=== PATIENT | female | born 1940 | race Caucasian/White ===

== ENCOUNTER 2016-06-13 20:43 | Inpatient (IN) | payer MEDICARE ==
[~2016-06-13] VITALS: Ht 170.2 cm; Wt 47.5 kg
[2016-06-13 20:53] VITALS: BP 142/69; PULSE 80; RESP 35; O2SAT 85
--- NOTE | 2016-06-13 20:53 | ED.REPORT ---
HPI-Dyspnea / Wheezing Date of Service Jun 13, 2016 ED Provider: Donte Shaikh DO A 75 year old female with a history of COPD presents to the ED via EMS from [facility] complaining of SOB. Per EMS, ,the patient was found tripoding, speaking in 3 word sentences and in significant respiratory distress.she was given nebulizer treatment at the nursing facility and then again by EMS and Route. She recently has had previous episodes of similar symptoms and recently had a chest XRay done to rule out pneumonia. She denies any history of heart conditions and denies any other pertinent medical history. She has never been intubated before. She confirms a DO NOT RESUSCITATE/DO NOT INTUBATE status. History is difficult to obtain given patient's respiratory distress and shortness of breath. Nursing Notes Stated Complaint: COPD EXACERBATION Chief Complaint: Respiratory Distress Nursing Notes Reviewed: Yes Allergies: Coded Allergies: Penicillins (Verified Allergy, Intermediate, 06/13/16) Scheduled Albuterol HFA (Proair HFA) 8.5 Gm Hfa.aer.ad 2 PUFFS INHALATION Q4H Albuterol Neb Soln (Albuterol Neb Soln) 0.63 Mg/3 Ml Vial.neb 0.63 MG INHALATION QID Aspirin (Aspirin) 81 Mg Tablet 81 MG PO DAILY Beclomethasone Dipropionate (Qvar) 8.7 Gm Aer.w.adap 1 PUFF INHALATION BID Calcium Carbonate (Tums) 500 Mg Tab.chew 500 MG PO DAILYWD Diltiazem (Diltiazem) 30 Mg Tablet 30 MG PO TID Docusate Sodium (Colace) 100 Mg Capsule 100 MG PO DAILY Ergocalciferol (Vitamin D2) (Vitamin D2) 2,000 Unit Tablet 2,000 UNIT PO DAILY Ferrous Sulfate (Iron) 325 Mg Capsule.er 325 MG PO DAILY Fexofenadine (Fexofenadine) 180 Mg Tablet 180 MG PO DAILY DAILY NEEDED FOR ALLERGIES Fluticasone Propionate (Fluticasone Propionate) 50 Mcg/Actuation [place].susp 15.8 ML NS DAILY Metformin (Metformin) 500 Mg Tablet 500 MG PO DAILY Multivitamin (Once Daily) 1 Each Tablet 1 EACH PO DAILY Propranolol HCl (Propranolol HCl) 80 Mg Tablet 80 MG PO BID Ranitidine (Ranitidine) 150 Mg Capsule 150 MG PO BID Sertraline HCl (Sertraline) 25 Mg Tablet 25 MG PO DAILY Tiotropium [place] (Spiriva) 18 Mcg Cap.w.dev 18 MCG IH DAILY Scheduled PRN Acetaminophen (Acetaminophen) 325 Mg Tablet 650 MG PO Q4H PRN PRN For Pain Albuterol Neb Soln (Albuterol Neb Soln) 0.63 Mg/3 Ml Vial.neb 0.63 MG INHALATION Q4H PRN PRN For Shortness of Breath Zolpidem (Ambien) 5 Mg Tablet 5 MG PO HS PRN PRN For Insomnia General Time Seen by MD: 20:48 Transferred From: [facility] ([facility]) Chief Complaint Shortness of breath Hx Obtained From: Patient, EMS Arrived By: Ambulance Sudden in Onset?: Yes Onset Occurred: Onset unknown Symptom Duration: Duration unknown Recent Healthcare: Recent doctor visit (Had chest XRay done recently. ) Similar Sx Previous: No Past Medical History Past Medical History Patient is DNR. Reports: COPD Past Surgical History none reported. Ambulatory Status Independent Review of Systems Constitutional: Denies: Fever Respiratory: Reports: Shortness of breath Complete sys rev & neg: except as marked. Physical Exam Initial Vital Signs Vital Signs (First) Date Time Temp Pulse Resp B/P Pulse Ox O2 Delivery O2 Flow Rate FiO2 06/13/16 20:53 37.2 80 35 142/69 85 Simple Mask 7 Initial VS: Reviewed General/Constitutional: Awake, Alert, Well appearing Patient is speaking in 3 word sentences. History is limited due to patient condition. + head bobbing. Neck: Atraumatic, Full range of motion Resp Distress / Stridor: Positive: Resp distress moderate (moderate to severe respitory distress.) Lungs are tight. Poor air movement. Does have some mild expitory wheezing and prolonged expiration. Cardiovascular: Heart rate NL, Regular rhythm, Heart sounds NL, No gallop, No murmurs, No rubs ENT: Atraumatic, Mucous membranes moist Abdomen: Atraumatic, No guarding, No rebound Back: Atraumatic, Full range of motion Lower Extremity / Pelvis / MS: Atraumatic, Full range of motion Skin: Atraumatic, Warm, Dry Neurologic: Oriented X3, Speech NL Head / Eyes: Atraumatic, Normocephalic, PERRL, EOMI Upper Extremity / MS: Atraumatic, Full range of motion Wrist / Hand: Atraumatic, Full range of motion Ankle / Foot: Atraumatic, Full range of motion Interpretation & Diagnostics Lab Results Interpretation Result Diagram: 06/15/16 0204 06/15/16 0204 Test 06/13/16 20:58 06/13/16 21:43 Pro-B-Type Natriuretic Peptide 931.8pg/mL (0-738) Procalcitonin 0.04ng/mL (0.00-0.08) Lactic Acid Level 0.8mmol/L (0.4-2.0) ECG Interpretation ECG Interpretation: Sinus rhythm. Rate is 80. No ST abnormalities. Time: 20:54 Interpreted by: ED physician X-Ray Chest Interpretation Chest Xray Interpretation: IMPRESSION: Chronic diffuse/interstitial disease. No acute consolidation Dictated by: Zak Emery M.D. on 06/13/2016 at 21:59 Approved by: Zak Emery M.D. on 06/13/2016 at 22:00 View: Portable, 1 view Interpretation / Wet Read by: Interpret - Radiologist Re-Eval/Medical Decision Med Decision/Clinical Course 75-year-old female with a history of COPD presenting with respiratory failure and required BiPAP for half an hour or so. At that point patient then began refusing BiPAP. She received nebulizer treatment here which improved her breathing. On recheck she was moving more air but remained very wheezy. ABG returned showing pH of 7.4/46/77/29.3. Patient's pulse ox is at 86% with good waveform on full facemask at 7 L. She is refusing to wear the BiPAP which does bring her pulse ox up significantly into the 90s. 2000 New oxygen monitor placed and her pulse ox is now at 100. When oxygen removed patient drops into the 80s. Patient was treated with magnesium, Solu-Medrol. Antibiotics were not started as her calcitonin is negative. Patient admitted for further workup and treatment. Source of Hx: Old records, EMS Re-Evaluation/Progress : Time of Eval: 22:58 Re-Evaluation/Progress Note: Rechecked patient, explained test results, diagnosis, and plan for admission. Patient understands and agrees with plan. Consultation : Referral / Consult Name: Charleen Joshi MD Consulted With: Hospitalist Call Returned at: 22:56 Anesthesiologist Attending: Agrees with eval, Agrees with plan, Accepts admit Note: Discussed patient case with Dr. Joshi who accepts patient admit. Counseled Regarding: Diagnosis, Lab results, Need for admission Discharge & Departure Impression: Primary Impression: Respiratory failure Chronicity: acute Respiratory failure complication: hypoxia and hypercapnia Qualified Code: J96.01 - Acute respiratory failure with hypoxia Additional Impressions: COPD exacerbation Anemia Anemia type: unspecified type Qualified Code: D64.9 - Anemia, unspecified Hyperglycemia Disposition: ADMITTED TO HOSPITAL Discharge Condition All VS Reviewed: Yes Condition: Stable Crit Care Except Billable Proc Time Spent: 30-74 minutes Services Performed: Patient management by me, Time spent at bedside, Reviewing test results, Reviewing imaging, Discussing patient care, Documentation in record, Time with fam/surrogate Scribe Attestation Portions of this note were transcribed by Simeon Dallas. I, Dr. Shaikh personally performed the history, physical exam and medical decision-making; I reviewed and confirmed the accuracy of the information in the transcribed note. Signed by: Iron Reis, 06/14/2016 0033. Donte Shaikh DO Jun 13, 2016 20:53 Simeon Dallas Jun 13, 2016 21:02 Albumin 3.7g/dL (3.4-5.0) Procalcitonin 0.04ng/mL (0.00-0.08) Lactic Acid Level 0.8mmol/L (0.4-2.0) ECG Interpretation ECG Interpretation: Sinus rhythm. Rate is 80. No ST abnormalities. Time: 20:54 Interpreted by: ED physician X-Ray Chest Interpretation Chest Xray Interpretation: IMPRESSION: Chronic diffuse/interstitial disease. No acute consolidation Dictated by: Zak Emery M.D. on 06/13/2016 at 21:59 Approved by: Zak Emery M.D. on 06/13/2016 at 22:00 View: Portable, 1 view Interpretation / Wet Read by: Interpret - Radiologist Re-Eval/Medical Decision Med Decision/Clinical Course ABG returned showing pH of 7.4/46/77/29.3. Patient's pulse ox is at 86% with good waveform. She is refusing to wear the BiPAP which does bring her pulse ox up significantly into the 90s. 2000 New oxygen monitor placed and her pulse ox is now at 100. Source of Hx: Old records, EMS Re-Evaluation/Progress : Time of Eval: 22:58 Re-Evaluation/Progress Note: Rechecked patient, explained test results, diagnosis, and plan for admission. Patient understands and agrees with plan. Consultation : Referral / Consult Name: Charleen Joshi MD Consulted With: Hospitalist Call Returned at: 22:56 Anesthesiologist Attending: Agrees with eval, Agrees with plan, Accepts admit Note: Discussed patient case with Dr. Joshi who accepts patient admit. Counseled Regarding: Diagnosis, Lab results, Need for admission Discharge & Departure Impression: Primary Impression: COPD exacerbation Disposition: ADMITTED TO HOSPITAL Discharge Condition All VS Reviewed: Yes Condition: Stable Scribe Attestation Portions of this note were transcribed by Simeon Dallas. I, Dr. Shaikh personally performed the history, physical exam and medical decision-making; I reviewed and confirmed the accuracy of the information in the transcribed note. Signed by: Iron Reis, 06/14/2016 0033. Donte Shaikh DO Jun 13, 2016 20:53 Simeon Dallas Jun 13, 2016 21:02
[2016-06-13] MEDS ORDERED: Magnesium Sulf 2 Gm/50mL Water 2 GM in IV Premix 1 EACH IV ONE (20:55)
[2016-06-13] MEDS ORDERED: MethylprednisoLONE Sodium Succinate 62.5 mg/mL 2 mL Inj IVPUSH ONE (20:55)
[2016-06-13] MEDS ORDERED: Albuterol-Ipratropium 3 mL Inhalation Solution NEB ONE (20:55)
--- NOTE | 2016-06-13 21:18 | ABG ---
DateTimeAnalyzed 21:13:00 -_ pH ____7.423 - 7.350 7.450 pCO2 ___45.8__ -mmHg 35.0 45.0 pO2 ___76.9__ -mmHg 69.0 116 HCO3- ___29.3__ -mmol/L 22.0 26.0 ABE ____4.8__ -mmol/L -2.0 2.0 tHb ____9.5__ -g/dL O2Hb ___93.6__ -% COHb ____1.3__ -% MetHb ____1.1__ -% sO2 ___95.9__ -% FIO2 ___30.0__ -% Drawn By MK - Date/Time Notified____ 21:18:00 -_ Oxygen Device 1 __oxymask - Notified By MK - B 759 -mmHg tO2 ___12.6__ -Vol% Jorge test _Positive -
[2016-06-13 21:22] LABS: BASOPHILS % (AUTO) 0.3 % (0-3); EOSINOPHILS % (AUTO) 2.2 % (0-5); MONOCYTES % (AUTO) 8.2 % (4-12); Mean Corpuscular Hemoglobin 28.3 pg (27.0-35.0); Mean Corpuscular Volume 89.8 fL (81-100); NEUTROPHILS % (AUTO) 73.2 % (40-74); Platelet Count 255 bil/L (150-400)
[2016-06-13 21:25] VITALS: BP 107/84; PULSE 83; RESP 24; O2SAT 100
[2016-06-13 21:52] LABS: TROPONIN T 0.01 ug/L (0.0-0.011)
--- NOTE | 2016-06-13 22:02 | DRSVH ---
PROCEDURE: X-RAY CHEST ONE VIEW, PORTABLE ([id number]) INDICATIONS: SOB TECHNIQUE: One view of the chest was acquired. COMPARISON: None. FINDINGS: Surgical changes and devices: None. Lungs and pleura: No pleural effusions or pneumothorax. Lungs are clear. There is severe diffuse in terstitial change and scarring. Lungs are hyperinflated Mediastinum: Mediastinal contours appear normal. Heart size is normal. Bones and chest wall: No suspicious bony lesions. Overlying soft tissues appear unremarkable. Frame Operator carmen appearing right rib fractures IMPRESSION: Chronic diffuse/interstitial disease. No acute consolidation Dictated by: Zak Emery M.D. on 06/13/2016 at 21:59 Approved by: Zak Emery M.D. on 06/13/2016 at 22:00
[2016-06-13 22:42] VITALS: BP 127/75; PULSE 78; RESP 28; O2SAT 95
[2016-06-13 23:27] VITALS: BP 131/72; PULSE 80; RESP 27; O2SAT 96
[2016-06-13 23:32] VITALS: BP 131/72; PULSE 80; RESP 27; O2SAT 96
[2016-06-13] MEDS ORDERED: Ondansetron 2 mg/mL 2 mL Inj IVPUSH PRN (23:50)
[2016-06-13] MEDS ORDERED: Alum-Mag Hydrox-Simeth 30 mL Suspension PO PRN (23:50)
[2016-06-14] VITALS (20 sets, daily range): BP systolic 101–171; BP diastolic 57–109; PULSE 67–82; RESP 12–32; O2SAT 88–98
[2016-06-14] MEDS ORDERED: Alum-Mag Hydrox-Simeth 30 mL Suspension PO PRN (00:15)
[2016-06-14] MEDS ORDERED: Polyethylene Glycol (PEG) 17 Gm Powder PO PRN (00:15)
[2016-06-14] MEDS ORDERED: Albuterol 1.25 mg/3 mL Inhalation Solution NEB PRN (00:15)
[2016-06-14] MEDS ORDERED: Glucose 40% Oral Gel 15 Gm Tube PO PRN (00:15)
--- NOTE | 2016-06-14 00:42 | PCM.HPMED ---
Subjective Date of Service Jun 13, 2016 Primary Provider: Admitting Physician: Charleen Joshi MD Primary Care Physician: Todd Garcia DO Attending Physician: Charleen Joshi MD Chief Complaint: Shortness of breath History of Present Illness: Patient is a 75 year old female with a history of COPD who presents to the ED via EMS from [facility] complaining of shortness of breath. Per EMS, the patient was found in tripod position. Oxygen stat en route was 88-90%. She recently has had previous episodes of similar symptoms. She reports a productive cough with yellow sputum and wheezing, as well as decreased appetite for 2-3 days. She denies chest pain, abdominal pain, N/V/D, fevers, chills, or weakness. She was seen in clinic for pneumonia and COPD in April and was treated with a course of prednisone. In the ED, she initially presented with a temp of 37.2, HR 80, RR 36, satting 85 % on 7L mask. EKG showed sinus rhythm. CXR showed chronic diffuse/interstitial disease with no acute consolidation. An ABG showed pH 7.423, pCO2 45.8, pO2 77, and bicarb of 29.3. She was placed on BiPAP for a period of time and her oxygen saturation improved to the 90s. She was eventually unable to tolerate the BiPAP and was able to maintain saturation on oxymask after nebulizers and Solu Medrol. Patient's history is limited and she cannot recall much of her medical history. Review of Systems: Comprehensive review of systems conducted and was negative except for the pertinent positives listed above. Allergies Coded Allergies: Penicillins (Verified Allergy, Intermediate, 06/13/16) Home Medic[facility] Acidophilus Albuterol nebulizer Aspirin 81 mg daily Calcium Diltiazem 30 mg TID Fexofenadine 180 mg daily Fluticasone intranasal Nicotine patch 14 mg daily Albuterol inhaler Propranolol 80 mg BID Qvar inhaler Ranitidine 150 mg BID Sertraline 25 mg daily Spiriva inhaler Vitamin D Zolpidem 20 mg qhs PMH COPD Depression GERD Surgical History Left elbow surgery Hysterectomy Family History Patient states she is adopted Social History Hx Alcohol Use: No Hx Substance Use: No Hx Tobacco Use: Yes Smoking Status: Former Smoker (60 pack year history, quit in March) Exam Vital Signs Vital Sign - Last Date Time Temp Pulse Resp B/P Pulse Ox O2 Delivery O2 Flow Rate FiO2 06/13/16 23:32 80 27 131/72 96 Simple Mask 2 Nasal Cannula 06/13/16 20:53 37.2 Exam General: Alert, Oriented, Cooperative, No acute distress. Appears cachectic. Head: Normocephalic, atraumatic. External ears normal. Eyes: PERRLA, EOMI. Anicteric sclerae. Mouth: Mouth normal, Mucous membranes moist/pink Neck: Neck supple with full range of motion. Chest& Lungs: Bilateral expiratory wheezes Cardiovascular: Regular rate/rhythm, Normal S1, Normal S2, No murmurs/rubs/ gallops Abdomen: Non-tender, Non-distended, No masses, Normoactive bowel tones, Soft Musculoskeletal: Normal range of motion Extremities: No cyanosis/clubbing/edema bilaterally Neurological: Grossly neurologically intact. Normal speech Lab and Diagnostics Result Diagram: 06/13/16205706/13/162057 Assessment & Plan Patient is a 75 year old female with a history of COPD who presents to the ED via EMS from [facility] complaining of shortness of breath, productive cough, and wheezing. Admitted for COPD exacerbation 1. Acute on chronic COPD exacerbation. Present on admission - Pt presents with coughing, wheezing, shortness of breath. Improved on nebulizers. Received Solu-Medrol 125 mg in ED. No signs of infection - WBC, procalcitonin, and lactic acid are normal. - Duonebs q6hwa - Albuterol nebs q2h PRN - Prednisone 60 mg PO daily - Hold home inhalers 2. Acute anemia. Present on admission. - Hb 10 on admission. MCV 89.8. Pt denies blood in stool or urine. - Monitor CBC daily - Continue to monitor for signs of bleeding 3. Hyperglycemia, acute. Present on admission. - Glucose 175 on admission. No prior records of past medical history, but pt denies diabetes. - A1c ordered - Humalog low dose correctional scale 4. Hypertension, chronic - Continue home propranolol and aspirin 5. Depression - Continue home sertraline and zolpidem 6. GERD - Continue home ranitidine 7. History of smoking - Continue nicotine patch - Bowel regimen as needed - Antiemetic as needed Patient is admitted under inpatient status with expected length of stay greater than 2 midnights due to severity of presenting symptoms, risk of adverse event, and complexity of treatment plan. - Note: Patient's history is limited and medications obtained from [facility] records. Recommend requesting further records in the daytime. Med Rec not complete at this time. VTE Prophylaxis: Sub-Q Heparin (Unfractionated) Resuscitation Status: DNR/DNI:Do Not Resuscitate/Intubate Attending Statement Patient seen and examined by myself and agree with above plan. Jarred Bah Jun 13, 2016 23:51 Charleen Joshi MD Jun 14, 2016 06:18
[2016-06-14] MEDS: Heparin 5,000 Unit/mL Inj SUBQ SCH ×3 (00:52→17:56)
[2016-06-14] MEDS: 0.9% Sodium Chloride 1,000 ML IV SCH ×2 (00:52→14:53)
[2016-06-14] MEDS ORDERED: TIOT18CA3 IH (01:45)
[2016-06-14] MEDS ORDERED: FLUT15.88 NASAL (01:45)
[2016-06-14] MEDS ORDERED: RANI150C4 PO (01:45)
[2016-06-14] MEDS ORDERED: ALBU8.5H2 INHALATION (01:45)
[2016-06-14] MEDS ORDERED: DOCU-41 PO (01:45)
[2016-06-14] MEDS ORDERED: BECL8.7A6 INHALATION (01:45)
[2016-06-14] MEDS ORDERED: CALC500T9 PO (01:45)
[2016-06-14] MEDS ORDERED: ASPI-973 PO (01:45)
[2016-06-14] MEDS ORDERED: FEXO-106 PO (01:45)
[2016-06-14] MEDS ORDERED: FERR325C PO (01:45)
[2016-06-14] MEDS ORDERED: MULT-666 PO (01:45)
[2016-06-14] MEDS ORDERED: ACET325T51 PO (01:45)
[2016-06-14] MEDS ORDERED: DILT30TA PO (01:45)
[2016-06-14] MEDS ORDERED: ERGO2000 PO (01:45)
[2016-06-14] MEDS ORDERED: METF500T4 PO (01:45)
[2016-06-14] MEDS ORDERED: ALBU0.63 INHALATION ×2 (01:45)
[2016-06-14] MEDS ORDERED: SERT25TA6 PO (01:45)
[2016-06-14] MEDS ORDERED: PROP80TA4 PO (01:45)
[2016-06-14] MEDS ORDERED: ZLP5T PO (01:45)
[2016-06-14 01:48] LABS: APPEARANCE,URINE CLEAR (CLEAR,HAZY); COLOR,URINE YELLOW (YELLOW); OCCULT BLOOD,URINE NEGATIVE (NEGATIVE); PH,URINE 5.5 (5.0-8.0); UROBILINOGEN,URINE NORMAL (NORMAL)
--- NOTE | 2016-06-14 06:17 | NUR ---
Admit Admitted from ED via stretcher. Able to ambulate on arrival. Significant ROACH with decreased SpO2 into the mid 80's on 2L Oxymask noted after ambulating. After several minutes of rest and increased O2 via oxymask SpO2 returned to >90%. Non productive cough noted on assessment. Tele SR w/o c/o CP. Denies n/v but reports poor PO intake at baseline. Toileting per BSC without any noted GI/ issues. Generalized weakness reported especially with activity. NS @ 80ml/hr initiated per orders. Personal belongings at bedside per patient request. Oriented to call light use with return demonstration.
[2016-06-14 07:41] LABS: BASOPHILS % (AUTO) 0 % (0-3); EOSINOPHILS % (AUTO) 0.2 % (0-5); Mean Corpuscular Hemoglobin 28.7 pg (27.0-35.0); Mean Corpuscular Volume 89.8 fL (81-100); NEUTROPHILS % (AUTO) 88.1 % (40-74); Platelet Count 171 bil/L (150-400)
[2016-06-14] MEDS: Albuterol-Ipratropium 3 mL Inhalation Solution NEB SCH ×4 (08:05→21:21)
[2016-06-14] MEDS ORDERED: Ergocalciferol (Vit D2) 50,000 Unit Capsule PO SCH (08:30)
--- NOTE | 2016-06-14 09:21 | NUR ---
Evaluation completed. Please go to "Notes" then click on "Assessments and Notes" (bottom left corner of screen). Then select appropriate discipline tab on top of screen.
--- NOTE | 2016-06-14 09:30 | PCM.PNMED ---
Subjective Date of Service Jun 14, 2016 Subjective - Pt seen and examined this morning. AAO x 3. No acute events over night. States that she is doing better than yesterday. - c/o SOB which is improving. - Denies any chest pain. Exam Vital Signs Vital Sign - Last Date Time Temp Pulse Resp B/P Pulse Ox O2 Delivery O2 Flow Rate FiO2 06/14/16 09:20 80 06/14/16 08:10 18 93 Nasal Cannula 2.00 06/14/16 05:51 36.4 169/79 Intake and Output 06/13/16 06/13/16 06/14/16 Cumulative From/Thru 15:00 23:00 07:00 06/13/16 20:53 - 06/14/16 06:37 Intake Total 300 ml 300 ml Output Total 925 ml 925 ml Balance -625 ml -625 ml Intake Oral 300 ml 300 ml Output Urine Total 925 ml 925 ml Exam General: Alert, Oriented, Cooperative, No acute distress. Appears cachectic. Head: Normocephalic, atraumatic. External ears normal. Eyes: PERRLA, EOMI. Anicteric sclerae. Mouth: Mouth normal, Mucous membranes moist/pink Neck: Neck supple with full range of motion. Chest& Lungs: Bilateral expiratory wheezes, decrease breath sounds at bilateral bases. Cardiovascular: Regular rate/rhythm, Normal S1, Normal S2, No murmurs/rubs/ gallops Abdomen: Non-tender, Non-distended, No masses, Normoactive bowel tones, Soft Musculoskeletal: Normal range of motion Extremities: No cyanosis/clubbing/edema bilaterally Neurological: Grossly neurologically intact. Normal speech Lab and Diagnostics Result Diagram: 06/14/1671806/14/16718 Assessment & Plan 75 year old female with a history of COPD who presents to the ED via EMS from [facility] complaining of shortness of breath, productive cough, and wheezing. Admitted for COPD exacerbation 1. Acute on chronic COPD exacerbation. Present on admission - Pt presents with coughing, wheezing, shortness of breath. Improved on nebulizers. Received Solu-Medrol 125 mg in ED. No signs of infection - WBC, procalcitonin, and lactic acid are normal. - Duonebs q 6hours - Albuterol nebs q2h PRN - Prednisone 60 mg PO daily - on Azithromycin day # 1 - Hold home inhalers 2. Acute anemia. Present on admission. - Hb 10 on admission trended down to 9 - Pt denies blood in stool or urine. - Monitor CBC daily - Continue to monitor for signs of bleeding 3. Hyperglycemia, acute. Present on admission. - Glucose 175 on admission. No prior records of past medical history, but pt denies diabetes. - A1c pending - Humalog low dose correctional scale 4. Hypertension, chronic - Continue home propranolol and aspirin 5. Depression - Continue home sertraline and zolpidem 6. GERD - Continue home ranitidine 7. History of smoking - Continue nicotine patch - Bowel regimen as needed - Antiemetic as needed VTE Prophylaxis: Sub-Q Heparin (Unfractionated) Resuscitation Status: DNR/DNI:Do Not Resuscitate/Intubate Chavez Byrd MD Jun 14, 2016 09:30
[2016-06-14] MEDS: predniSONE 20 mg Tablet PO SCH (10:37)
[2016-06-14] MEDS: Pantoprazole 20 mg ER24 Tablet PO SCH ×2 (10:37→22:38)
[2016-06-14] MEDS: Insulin LISPRO 300 Unit/3 mL Inj SUBQ SCH ×4 (10:38→22:40)
--- NOTE | 2016-06-14 11:55 | NUR ---
Social Work-initial assessment: Data:See initial assessment. Pt is a 75 y/o female who was admitted on 06/13/16 for COPD exacerbation per H&P. Pt's insurance is [facility] and PCP is Todd Garcia MD. EMR reviewed. SW met with pt at bedside to discuss discharge planning, SW role explained. Pt is alert and oriented x3. Pt informed SW that she has been residing at [facility] and plans to return there at discharge. Pt uses a fww at baseline and does not drive. Pt has no HH history. Pt has no skilled nursing care insurance or VA benefits. SW discussed DPOA/ advanced directive, pt confirms that she has completed this, SW encouraged a copy to be brought into the hospital. Pt plans on returning to [facility] at discharge. SW provided phone number and plan on white board in room. SW placed a call to Joanna Wick at [facility] who confirms they are able to accept pt back at discharge. Joanna informed SW that pt has been paying privately for SNF since 05/06. PT saw pt and recommended SNF. SW will attempt to get authorization from , if denies then pt will pt will return private pay. Paperwork in the chart. SW will continue to follow. Assessment:Pt who would benefit from SNF. Plan:Pt to discharge back to [facility] when medically stable. authorized will be attempted, if they do not authorize, pt will return private pay. Paperwork in the chart. SW will continue to follow. KERON White Addendum: 06/14/16 at 1202 by ARIELLA SUÁREZ Amended: Links added.
--- NOTE | 2016-06-14 12:02 | NUR ---
[facility] can accept back with Dr. Garcia to follow. KERON White
--- NOTE | 2016-06-14 18:14 | NUR ---
Chest Pain Patient complained of 5/10 chest pain. Ordered EKG stat and notified open hearth furnace operator helper. technical training specialist notified stat nurse. after EKG was done. notified MD asked for orders for nitro and morphine. By this time zuluaga increased to 6/10. Gave one dose of nitro. no change in pain. gave 2mg of morphine IVPush. Pain went down to 5/10. Gave second dose of nitro. no change in pain. Gave another 2mg of morphine. Pain went down to 3/10.
[2016-06-14] MEDS ORDERED: Nitroglycerin 50 mg/250 mL D5W 50,000 MCG in IV Premix 1 EACH IV SCH (19:10)
[2016-06-14] MEDS ORDERED: Nitroglycerin 2% 1 Gm Ointment TOPICAL ONE (19:12)
[2016-06-14] MEDS ORDERED: Nitroglycerin 50,000 mcg/250 mL D5W Premix IV ONE (19:13)
--- NOTE | 2016-06-14 19:53 | PCM.PNMED ---
Subjective Date of Service Jun 14, 2016 Subjective Called to see patient regarding chest pain radiating to her left shoulder which started about 4 PM and it is currently 7 PM. Nurse tells me patient was evaluated by Day .Pt received some IV morphine which helped a little bit including given some sublingual nitroglycerin which seemed to help. EKG shows no acute changes and reportedly troponin was done but there is none listed in the labs. Patient has been fairly constant since about 4 PM. She denies any increase in shortness of breath with this. She is here for COPD exacerbation. She denies any nausea or diaphoresis. Exam Vital Signs Vital Sign - Last Date Time Temp Pulse Resp B/P Pulse Ox O2 Delivery O2 Flow Rate FiO2 06/14/16 18:41 37.0 69 21 134/80 92 Nasal Cannula 2.00 Intake and Output 06/13/16 06/13/16 06/14/16 Cumulative From/Thru 15:00 23:00 07:00 06/13/16 20:53 - 06/14/16 06:37 Intake Total 300 ml 300 ml Output Total 925 ml 925 ml Balance -625 ml -625 ml Intake Oral 300 ml 300 ml Output Urine Total 925 ml 925 ml Exam Constitutional: Elderly woman in mild pain distress Head: Normocephalic atraumatic Chest: Decreased breath sounds diffusely with some scant expiratory wheezes Cor: Regular rate and rhythm S1-S2 without murmur Abdomen: Soft there is mild tenderness in the epigastrium no rebound no guarding Extremities: No pedal edema Neuro: Alert and oriented 3, motor strength is intact bilaterally Lab and Diagnostics Laboratory Tests 72 Hours Test 06/13/16 20:58 06/13/16 21:43 06/14/16 01:14 06/14/16 07:19 White Blood Count 7.6th/mm3 (3.8-10.1) 4.9th/mm3 (3.8-10.1) Red Blood Count 3.53mil/mm3 (3.90-5.20) 3.14mil/mm3 (3.90-5.20) Hemoglobin 10.0g/dL (12.0-15.6) 9.0g/dL (12.0-15.6) Hematocrit 31.7% (35.0-46.0) 28.2% (35.0-46.0) Mean Corpuscular Volume 89.8fL (81-100) 89.8fL (81-100) Mean Corpuscular Hemoglobin 28.3pg (27.0-35.0) 28.7pg (27.0-35.0) Mean Corpuscular Hemoglobin Concent 31.5% (32.0-37.0) 31.9% (32.0-37.0) Red Cell Distribution Width 14.9% (12.3-15.4) 14.8% (12.3-15.4) Platelet Count 255bil/L (150-400) 171bil/L (150-400) Neutrophils (%) (Auto) 73.2% (40-74) 88.1% (40-74) Lymphocytes (%) (Auto) 15.7% (14-46) 10.3% (14-46) Monocytes (%) (Auto) 8.2% (4-12) 1.0% (4-12) Eosinophils (%) (Auto) 2.2% (0-5) 0.2% (0-5) Basophils (%) (Auto) 0.3% (0-3) 0% (0-3) Sodium Level 135mEq/L (134-144) 137mEq/L (134-144) Potassium Level 4.2mEq/L (3.5-5.2) 4.1mEq/L (3.5-5.2) Chloride Level 95mEq/L (97-108) 98mEq/L (97-108) Carbon Dioxide Level 27mmol/L (18-29) 26mmol/L (18-29) Blood Urea Nitrogen 16mg/dL (8-27) 14mg/dL (8-27) Creatinine 0.61mg/dL (0.57-1.00) 0.48mg/dL (0.57-1.00) Estimat Glomerular Filtration Rate 136mL/min (>59) 180mL/min (>59) Glucose Level 175mg/dL (60-99) 201mg/dL (60-99) Calcium Level 9.2mg/dL (8.5-10.1) 8.5mg/dL (8.5-10.1) Total Bilirubin 0.3mg/dL (0.0-1.2) 0.2mg/dL (0.0-1.2) Aspartate Amino Transf (AST/SGOT) 17U/L (0-50) 15U/L (0-50) Alanine Aminotransferase (ALT/SGPT) 10U/L (0-32) 9U/L (0-32) Alkaline Phosphatase 96U/L (25-165) 83U/L (25-165) Troponin T 0.010ug/L (0.0-0.011) Pro-B-Type Natriuretic Peptide 931.8pg/mL (0-738) Total Protein 8.1g/dL (6.4-8.4) 7.0g/dL (6.4-8.4) Albumin 3.7g/dL (3.4-5.0) 3.3g/dL (3.4-5.0) Procalcitonin 0.04ng/mL (0.00-0.08) Lactic Acid Level 0.8mmol/L (0.4-2.0) Urine Color Yellow (YELLOW) Urine Appearance Clear (CLEAR,HAZY) Urine pH 5.5 (5.0-8.0) Urine Specific [place] 1.020 (1.003-1.035) Urine Protein Negativemg/dL (NEG,TRACE) Urine Glucose (UA) Negativemg/dL (NEGATIVE) Urine Ketones Negativemg/dL (NEGATIVE) Urine Occult Blood Negative (NEGATIVE) Urine Nitrite Negative (NEGATIVE) Urine Bilirubin Negative (NEGATIVE) Urine Urobilinogen Normalmg/dL (NORMAL) Urine Leukocyte Esterase Negative (NEGATIVE) Urine RBC 0-2/hpf (0-2) Urine WBC 0-5/hpf (0-5) Urine Epithelial Cells Few/hpf (NONE-MOD) Urine Crystals Oxalic acid crystals (NONE Urine Bacteria None/hpf (NONE-FEW) Urine Hyaline Casts None/lpf (NONE) Urine Granular Casts None seen (NONE SEEN) Urine Waxy Casts None seen (NONE SEEN) Urine Red Blood Cell Casts None seen (NONE SEEN) Urine White Blood Cell Casts None seen (NONE SEEN) Urine Mucus None seen (None Seen) Urine Trichomonas None seen (NONE SEEN) Urine Yeast None (NONE SEEN) Urine Culture Reflexed Not indicated Result Diagram: 06/14/1671806/14/16718 12-lead ECG EKG reveals sinus at a rate of 78 QTC is 417 otherwise no acute abnormalities noted relative to previous EKGs she does have poor R-wave progression across precordium noted that is old. Assessment & Plan 75 year old female with a history of COPD who presents to the ED via EMS from [facility] complaining of shortness of breath, productive cough, and wheezing. Admitted for COPD exacerbation 1. Acute on chronic COPD exacerbation. Present on admission - Pt presents with coughing, wheezing, shortness of breath. Improved on nebulizers. Received Solu-Medrol 125 mg in ED. No signs of infection - WBC, procalcitonin, and lactic acid are normal. - Duonebs q 6hours - Albuterol nebs q2h PRN - Prednisone 60 mg PO daily - on Azithromycin day # 1 - Hold home inhalers 2. Acute anemia. Present on admission. - Hb 10 on admission trended down to 9 - Pt denies blood in stool or urine. - Monitor CBC daily - Continue to monitor for signs of bleeding 3. Hyperglycemia, acute. Present on admission. - Glucose 175 on admission. No prior records of past medical history, but pt denies diabetes. - A1c pending - Humalog low dose correctional scale 4. Hypertension, chronic - Continue home propranolol and aspirin 5. Depression - Continue home sertraline and zolpidem 6. GERD - Continue home ranitidine 7. History of smoking - Continue nicotine patch - Bowel regimen as needed - Antiemetic as needed The plan for acute problem which is chest pain times several hours: We will go ahead and check a stat CT PE protocol chest Check serial cardiac enzymes She did respond to nitroglycerin so we will start her on IV nitroglycerin drip and transfer her to CCU We will also start IV heparin drip for now cardiac protocol Check echocardiogram in a.m. Check serial EKGs Interim update at 5:14 AM on 06/15/2016: -On CT PE protocol of chest A possible 7 x 8 cm squared hemorrhagic mass seen in left upper quadrant unclear whether it was part of the stomach inside or adjacent to the stomach and spleen. -Patient did drop her hemoglobin to 6.5. Patient was typed and crossed and is to get 2 units of PRBCs transfused along with 2 units of FFP. Patient was also given IV protamine per pharmacy and IV heparin drip was stopped. We will check serial hematocrits. - Case was discussed with both gastroenterology and general surgery on-call and both will evaluate. It was also recommended getting a repeat CT of abdomen with IV contrast to further investigate early this morning. CT of abdomen without contrast was obtained earlier in the evening and still was unable to elucidate where this hemorrhagic mass is located. VTE Prophylaxis: Sub-Q Heparin (Unfractionated) Resuscitation Status: DNR/DNI:Do Not Resuscitate/Intubate Time spent 40 minutes of critical care time Charleen Joshi MD Jun 14, 2016 19:53
[2016-06-14] MEDS ORDERED: Heparin 5,000 Unit/mL Inj IVPUSH ONE (19:55)
[2016-06-14] MEDS ORDERED: Heparin 5,000 Unit/mL Inj IVPUSH PRN (19:55)
[2016-06-14] MEDS ORDERED: Heparin 25K Unit/500mL 0.45 NS 25,000 UNIT in IV Premix 1 EACH IV SCH (19:55)
[2016-06-14] MEDS: Nitroglycerin 50 mg/250 mL D5W 50,000 MCG in IV Premix 1 EACH IV SCH (21:02)
[2016-06-15] VITALS (20 sets, daily range): BP systolic 124–167; BP diastolic 67–93; PULSE 64–80; RESP 12–28; O2SAT 93–99
[2016-06-15] MEDS: 0.9% Sodium Chloride 1,000 ML IV SCH ×2 (01:16→12:44)
[2016-06-15] MEDS: Ondansetron 2 mg/mL 2 mL Inj IVPUSH PRN ×3 (01:47→19:42)
[2016-06-15 02:17] LABS: BASOPHILS % (AUTO) 0.1 % (0-3); EOSINOPHILS % (AUTO) 0.1 % (0-5); MONOCYTES % (AUTO) 6.1 % (4-12); Mean Corpuscular Hemoglobin 28.2 pg (27.0-35.0); Mean Corpuscular Volume 88.8 fL (81-100); NEUTROPHILS % (AUTO) 81.9 % (40-74); Platelet Count 182 bil/L (150-400)
[2016-06-15] MEDS ORDERED: Protamine Sulfate 10 mg/mL 5 mL Inj IV ONE (02:45)
[2016-06-15] MEDS ORDERED: PROTAMINE SULFATE IV ONE (02:55)
[2016-06-15] MEDS ORDERED: SODIUM CHLORIDE 0.9% IV ONE (02:55)
[2016-06-15 03:37] LABS: Lipase 129 U/L (13-60)
--- NOTE | 2016-06-15 05:00 | NUR ---
Shift I assumed care of the patient at 2044. Patient reported left should pain at 2/10. Patient was currently running NS at 80ml/hr and nitro at 75mcg/min. Blood pressure stable. Patients nitro drip was increased per protocol till patient was pain free. Patient was started on IV Heparin drip per cardiac protocol. No signs of bleeding present. Patient was taken to CT and found to have an abdominal bleed. IV heparin was stopped right away and night hospitalist informed. Patient anticoagulation was reversed with protamine sulfate. 1 unit of RBCs was started infusing for a low H/H, followed by 1 unit of FFP and another unit of RBC's. A slight increase in pulmonary congestion was noted. 40 mg of lasix was administered and the patients lungs started to become less crackly. Patient had over 1300ml out on my shift. Patient blood pressure remained stable. IV NS placed TKO. Night hospitalist aware of changes. Per night hospitalist instructions placement of an NG tube was attempted without success. Patient became very panicked and refused to let the tube be placed.
[2016-06-15] MEDS ORDERED: Furosemide 10 mg/mL 4 mL Inj IVPUSH ONE (05:10)
[2016-06-15] MEDS: Albuterol-Ipratropium 3 mL Inhalation Solution NEB SCH ×4 (07:47→20:34)
[2016-06-15] MEDS: Pantoprazole 8 mg/Hr Infusion IV SCH ×4 (08:17→16:55)
[2016-06-15] MEDS: Insulin LISPRO 300 Unit/3 mL Inj SUBQ SCH ×4 (08:24→22:34)
[2016-06-15] MEDS: predniSONE 20 mg Tablet PO SCH ×2 (08:27→15:53)
--- NOTE | 2016-06-15 08:38 | DRSVH ---
PROCEDURE: CT ANGIO CHEST PULMONARY EMBOLISM ([id number]) INDICATIONS: SHORT OF BREATH TECHNIQUE: After the administration of intravenous contrast, 2 mm thick sections acquired from the pulmonary api collin to the posterior costophrenic angles. 3-dimensional maximum intensity projection (MIP) coronal a nd sagittal reformats were then acquired through the thorax. For radiation dose reduction, the follo wing was used: automated exposure control, adjustment of mA and/or kV according to patient size. COMPARISON: [facility], CR, CHEST 2 VIEW, 06/21/2015, 11:35. [facility], CR, XR ADAM ST 1VW (PORTABLE), 06/13/2016, 21:06. [facility], CR, CHEST 1 VIEW, 04/09/2016, 14:51. [facility], CT, CT ABD PELVIS WO CON, 06/15/2016, 2:17. FINDINGS: Image quality: Excellent. Pulmonary arteries: Pulmonary arteries are normal in size, and demonstrate no intraluminal filling d efects to suggest central pulmonary embolism. Lungs and pleura: There is moderate emphysema. Right basilar opacity may be pneumonia or atelectasis . Bilateral subpleural interstitial thickening and mild bronchiectasis. Trace bilateral pleural effus ions. No pneumothorax. Central and peripheral airways are patent. Mediastinum: Heart size is normal, without pericardial effusion. Mild mediastinal lymphadenopathy is present. There is a 1.6 x 1.8 cm subcarinal lymph node. A 1.5 cm paratracheal lymph node is identifi ed. Thoracic aorta is normal in caliber and enhancement. Esophagus is normal in caliber. Small hiata l hernia. Bones and chest wall: There is moderate compression fracture at T8 and mild compression fracture at T 12. Old right third, fourth, fifth rib fractures are noted. Ribs and thoracic spine appear intact th roughout. Thyroid gland is normal. No axillary or supraclavicular adenopathy. Abdomen: There is a mass in the left upper quadrant and measuring 7.9 x 8.6 cm. IMPRESSION: 1. No evidence for acute central pulmonary embolism. 2. Right basilar pneumonia or atelectasis. 3. Moderate emphysema. 4. Chronic interstitial lung disease with subpleural septal thickening and mild bronchiectasis. 5. Trace bilateral pleural effusions. 6. Mild mediastinal lymphadenopathy. This finding is nonspecific and requires clinical correlation a nd follow up. 7. A mass in the left upper quadrant abdomen. Please see separate CT abdomen for detail. 8. Moderate nonacute compression fracture at T8 and mild compression fracture at T12. There are also old right rib fractures. No significant discrepancy with the caustic cresylate shift superintendent radiology preliminary report. Dictated by: Kendra Jackson M.D. on 06/15/2016 at 8:19 Approved by: Kendra Jackson M.D. on 06/15/2016 at 8:36
[2016-06-15 09:01] LABS: Lipase 168 U/L (13-60); TROPONIN T < 0.010 ug/L (0.0-0.011)
--- NOTE | 2016-06-15 11:34 | DRSVH ---
PROCEDURE: CT ABDOMEN AND PELVIS WITHOUT CONTRAST ([id number]) INDICATIONS: abd mass LUQ hemorrhagic TECHNIQUE: After the administration of oral contrast, 5 mm thick sections acquired from the diaphragms to the sy mphysis. 5 mm coronal and sagittal reformats were performed. For radiation dose reduction, the foll owing was used: automated exposure control, adjustment of mA and/or kV according to patient size. COMPARISON: [facility], CT, CT ANGIO CHEST PE, 06/15/2016, 0:25. [facility], CT, TH ORAX WITH CONTRAST, 10/31/2015, 8:56. FINDINGS: Image quality: Excellent. ABDOMEN: Lung bases: Small bilateral perfusions and bibasilar atelectasis. Mild bronchiectasis. Heart size is normal. Solid organs: There is a 7.5 x 8.0 x 6.5 cm complex mass in the left upper quadrant. There is a flui d-fluid level within the mass. A cystic mass was seen in the same area on 10/23/15 measuring 2.5 x 3.9 cm. There is pancreatic calcification consistent with chronic pancreatitis. Liver and spleen are normal in size. Gallbladder is normal. Both kidneys are normal in size, withou t hydronephrosis or nephrolithiasis. Peritoneum and bowel: Bowel loops demonstrate normal wall thickness and caliber. Excreted IV contra st is noted in renal pelvis bilaterally. No free fluid or air. Nodes and vessels: No retroperitoneal or mesenteric adenopathy by size criteria. Aorta and inferior vena cava are normal in size. There is severe atherosclerosis. Miscellaneous: No ventral hernias. PELVIS: Genitourinary: Bladder wall thickness is normal. Miscellaneous: No inguinal hernias or adenopathy. Bones: Moderate compression fracture in T12. Degenerative changes in lumbar spine. IMPRESSION: 1. A large complex mass in the left upper quadrant measuring 7.5 x 8.0 x 6.5 cm and demonstrating a f luid-fluid level. This has increased in size compared to 10/23/2015. Differential diagnoses include pa ncreatic pseudocyst, hematoma and a cystic neoplasm. 2. Pancreatic calcifications consistent with chronic pancreatitis. 3. Moderate compression fracture of T12. 4. Small bilateral perfusions and bibasilar atelectasis. Dictated by: Kendra Jackson M.D. on 06/15/2016 at 11:22 Transcribed by: AYESHA on 06/15/2016 at 11:33 Approved by: Kendra Jackson M.D. on 06/15/2016 at 19:58
--- NOTE | 2016-06-15 13:49 | NUR ---
NUTRITION ASSESSMENT Assess: 75 YO F admitted to CCU for COPD exacerbation, possible GI bleed. Pt with variable PO intake on general diet. NGT placement unsuccessful. Pt refusing surgery and scope per CCU rounds. PMHX: COPD, depression, GERD. DIET: General. PO intake 0-90%. LABS: Na 129, Cr 0.51, Glu 191, Ca 7.7, Lipase 168 MEDICATIONS: Reviewed. Prednisone, Insulin. GI: 1 BM 06/14. SKIN: No issues noted. WEIGHT: 43.2 kg, BMI 14.9 kg/m2 = underweight, Admit wt: 43.2 kg. IBW: 61.4 kg. ESTIMATED NEEDS: WEIGHT GAIN Calories: 7868-4183 kcal/day (30-35 kcal/kg BW) Protein: 74-92 g/day (1.2-1.5 g/kg IBW) NUTRITION DIAGNOSIS: 1) Inadequate oral intake related to decreased ability to consume sufficient energy as evidenced by underweight BMI 14.9, variable PO intake. INTERVENTION: 1) Will add nutrition supplements to encourage adequate nutrition. MONITOR/EVALUATE: PO intake, POC, labs, diet tolerance, GI/nutrition status. Follow per moderate nutrition risk guidelines.
--- NOTE | 2016-06-15 15:39 | DRSVH ---
[facility] [address] [place] [address] Echocardiogram Report Name: ALEXEY DE LEONy Date: Height: 67 in Hospital Exam Location: [facility] Weight: 95 lb Gender: Female BSA: 1.5 m2 : 1940 Age: 75 yrs BP: 148/93 mmHg Reason For Study: Chest pain History: HTN, GERD, SMOKER Ordering Physician: Performed By: Lidia Gonzales Referring Physician: Todd Garcia Interpretation Summary 1. Normal left ventricular size, wall thickness with preserved systolic function and an estimated EF of 55 to 60% 2. Grossly normal right ventricular size and systolic function. The estimated RVSP is 39 mm Hg 3. No evidence for significant valvular pathology If further evaluation of wall motion is desired consider definity contrast. There is no old study for comparison Procedure: A two-dimensional transthoracic echocardiogram with color flow and Doppler was performed. The study quality was technically adequate. There is no prior echocardiogram noted for this patient. The patient was in normal sinus rhythm during the exam. Left Ventricle: The left ventricle is normal in size. Proximal septal thickening is noted. There is normal left ventricular wall thickness. The ejection fraction is estimated to be 55-60%. Endocardial definition is not optimal in all views. The apical anterior/anteroseptal segments are not optimally visualized, therefore, cannot rule out hypokinesis of these segments. Right Ventricle: The right ventricle grossly appears normal in size with probable normal systolic function. Atria: The left atrium is mildly dilated. The right atrium is mildly dilated. NO color doppler evidence for an ASD. Mitral Valve: There is moderate mitral annular calcification. The mitral valve leaflets appear mildly thickened, but open well. There is trace mitral regurgitation. Aortic Valve: The aortic valve is trileaflet. The aortic valve opens well. There is no aortic valve stenosis. There is trace aortic regurgitation. Tricuspid Valve: The tricuspid valve leaflets are thin and pliable. There is trace tricuspid regurgitation. The right ventricular systolic pressure is estimated at 39 mmHg assuming a right atrial pressure of 3 mm Hg. Pulmonic Valve: The pulmonic valve is not well visualized. There is trace pulmonic regurgitation. Great Vessels: The aortic root is normal size. The ascending aorta could not be visualized. The aortic arch is normal in size. The IVC is of normal diameter and collapses greater than 50% with a sniff. This suggests a low right atrial pressure of 3 mm Hg. Pericardium/ Pleura There is no pericardial effusion. MMode/2D Measurements & Calculations LVIDd: 4.3 cm RA long axis LVOT diam: 2.0 cm LVIDs: 2.7 cm LA A2 area: 18.7 cm Ao root diam FS: 37.1 % LA A4 area: 18.8 cm RA area EPSS: 0.32 cm LA length (vol) Aortic Jxn: 2.5 cm IVSd: 1.1 cm : 17.0 cm Ao Arch Diam (Prox LVPWd: 0.65 cm LA vol: 62.7 ml RA vol Trans): 2.6 cm LA vol index : 51.3 ml RA : 34.8 mm2 IVC diam: 1.9 cm LV day. diameter/BSA LV sys. diameter/BSA (cm/m^2): 2.9 (cm/m^2): 1.8 Doppler Measurements & Calculations Ao V2 max MV E max danny MV E/A: 1.6 TR max danny : 118.7 cm/sec : 89.5 cm/sec Med Peak E' Danny : 298.5 cm/sec Ao max PG MV A max danny TR max PG : 5.6 mmHg : 56.7 cm/sec E/E' med: 10.1 : 35.6 mmHg Ao mean PG MV P1/2t: 39.5 msec MV A dur: 0.12 sec PA V2 max : 70.2 cm/sec LVOT Max Danny PA mean PG : 73.5 cm/sec PA Accel Time JOEL(I,D): 1.7 cm : 0.09 sec sev ratio MV dec time MV P1/2t max danny Ao V2 mean LV V1 max PG : 0.13 sec : 83.7 cm/sec MVA(P1/2t): 5.6 cm2 Ao V2 VTI: 28.8 cm LV V1 VTI JOEL(V,D): 1.9 cm2 : 16.4 cm PA V2 mean JOEL indexed to BSA : 49.1 cm/sec (cm^2/m^2): 1.2 Reading Physician:03:38 PM
--- NOTE | 2016-06-15 15:43 | PCM.PNMED ---
Subjective Date of Service Jun 15, 2016 Subjective Follow up for COPD exacerbation and acute blood loss Anemia . Exam Vital Signs Vital Sign - Last Date Time Temp Pulse Resp B/P Pulse Ox O2 Delivery O2 Flow Rate FiO2 06/15/16 12:00 36.5 64 21 144/75 Nasal Cannula 2.00 06/15/16 11:52 95 Intake and Output 06/14/16 06/14/16 06/15/16 Cumulative From/Thru 14:59 22:59 06:59 06/13/16 20:53 - 06/15/16 06:05 Intake Total 637 ml 1411 ml 2348 ml Output Total 550 ml 1020 ml 2495 ml Balance 87 ml 391 ml -147 ml Intake Oral 637 ml 937 ml IV Total 1411 ml 1411 ml Output Urine Total 550 ml 1020 ml 2495 ml # Bowel Movements 1 1 Exam General: Frail and catechistic female in bed comfortably. very pleasant Head:Nan. Sclera is anicteric Mouth: Moist oropharyngeal mucosae Neck: Neck supple , no JVD, trachea is midline. Chest& Lungs: decrease air enty . No wheezing. Cardiovascular: , Normal S1, Normal S2, No murmurs/rubs/gallops Abdomen: Non-tender, Non-distended, No masses, Normoactive bowel tones Extremities: No cyanosis/, no edema Neurological: Grossly non focal IVs and Medications Medications Reviewed: Medications were reviewed in detail Lab and Diagnostics Result Diagram: 06/15/16 0808 06/15/16 0204 12-lead ECG EKG reveals sinus at a rate of 78 QTC is 417 otherwise no acute abnormalities noted relative to previous EKGs she does have poor R-wave progression across precordium noted that is old. Assessment & Plan 75 year old female with a history of COPD who presents to the ED via EMS from [facility] complaining of shortness of breath, productive cough, and wheezing. Admitted for COPD exacerbation 1. Acute on chronic COPD exacerbation. Present on admission - - Duonebs q 6hours - Albuterol nebs q2h PRN - Discontinue Prednisone - Supplemental oxygen . 2. Acute blood loss anemia. - H/H dropped to 6 last night while on heparin drip for ACS. - CT scan shows : A large complex mass in the left upper quadrant measuring 7.5 x 8.0 x 6.5 cm and demonstrates a fluid-fluid level. This has increased in size compared to 10/23/2015. Differential diagnoses include pancreatic pseudocyst , hematoma and versus cystic neoplasm Patient is known to have chronic pancreatic and pancreatic cyst . She was seen by surgery this morning she declined any possible surgical intervention/. We will proceed with medical management. Heparin is already reverse with protamin sulfate and FFP transfusion overnight . PTT, INR within normal limit now. I cut down on prednisone to 20 mg to reduce the risk of bleeding . ( She only get steroid for less than 48 hours : Solumedrol in ER then 60 mg of prednisone ) . Monitor H/H closely and transfuse PRN . It seems like the bleeding is contained . Consider repeat abdominal CT scan within 48 hours Discussed with GI and Surgery : no need for endoscopy. 3. Hyperglycemia, acute. Present on admission. - Glucose 175 on admission. No prior records of past medical history, but pt denies diabetes. - A1c pending - Humalog low dose correctional scale 4. Hypertension, chronic - Continue home propranolol and aspirin 5. Depression - Continue home sertraline and zolpidem 6. GERD - Continue home ranitidine 7. Active smoker : quit 3 -4 months ago - Continue nicotine patch Hemodynamically and clinically stable . Plan of care as above. monitor H/H and transfuse PRN. VTE Prophylaxis: Sub-Q Heparin (Unfractionated) VTE Mechanical Devices: Intermittant Pneumatic CD Resuscitation Status: DNR/DNI:Do Not Resuscitate/Intubate Time spent 35 minutes Ryan Mccabe MD Jun 15, 2016 15:43
--- NOTE | 2016-06-15 16:23 | NUR ---
Vital signs stable. Denies pain when asked. Exertional dyspnea noted, though denies shortness of breath. Sats 90-98% on 2L/NC. Protonix gtt, IVFs back to 80ml/hr following blood transfusion completion. Refusing bedpan, frequent voids, up to BSC with minimal assist. Sinus rhythm on tele, no ectopy noted. Afebrile. Diet advanced to Full Liquids, reports poor appetite, denies nausea. Abd soft, slightly distended, no stools today. Surgical consult this morning, patient is refusing surgery.
[2016-06-15] MEDS: Nitroglycerin 50 mg/250 mL D5W 50,000 MCG in IV Premix 1 EACH IV SCH (17:29)
--- NOTE | 2016-06-15 19:12 | CONS ---
[address] [address] CONSULTATION REPORT PATIENT: ALEXEY DE LEON : 1940 MR#: [id number] ADMIT: 06/13/2016 JOB ID: [id number] DATE OF SERVICE: 06/15/2016 CHIEF COMPLAINT: A 75-year-old lady with hemorrhagic lesion in the abdomen, seen in consultation at the request of Charleen Joshi MD. HISTORY OF PRESENT ILLNESS: The patient is a 75-year-old lady, who presented to the emergency department on June 13, 2016, with shortness of breath. She was admitted to the hospital with a diagnosis of exacerbation of chronic obstructive pulmonary disease. Last night, she was thought to have developed chest pain radiating to her left shoulder. She was initially thought to be having an acute thrombotic event and was started on IV heparin, but CT pulmonary angiogram and CT abdomen and pelvis did not show a pulmonary embolus but showed a hemorrhagic mass in the upper abdomen. Hemoglobin checked after the fact showed a drop to 6.9, down from 10.0 at the time of admission, prompting a consultation request. She was transfused overnight and her vitals continued to be relatively stable. The patient actually remembers being told about a cyst on her pancreas 20 years ago. Nothing was ever done about it. Then she remembers it again being brought up after a scan one or two years ago at which time she was evaluated in [place], but she decided against surgical intervention. OTHER MEDICAL PROBLEMS: 1. Chronic obstructive pulmonary disease. 2. Depression. 3. Gastroesophageal reflux disease. 4. Hypertension. PRIOR OPERATIONS: 1. Left elbow operation. 2. Hysterectomy. FAMILY HISTORY: She is adopted and does not know her biological family history. SOCIAL HISTORY: She quit smoking in March after a 60 pack year smoking history. She used to be able to go up stairs before but now she gets short of breath with that. MEDICATIONS: 1. Albuterol. 2. Baby aspirin. 3. Calcium. 4. Diltiazem. 5. Fexofenadine. 6. Fluticasone. 7. Nicotine patch. 8. Albuterol. 9. Propranolol. 10. Qvar. 11. Ranitidine. 12. Sertraline. 13. Spiriva. 14. Zolpidem. ALLERGIES: PENICILLIN. REVIEW OF SYSTEMS: Twelve-point review of systems negative other than the pertinent positives noted in the history of present illness and other medical problems. INVESTIGATIONS: Hemoglobin 10.5, up from 6.8 last night. Creatinine 0.5, amylase 212, lipase 168. CT pulmonary angiogram, June 15, 2016, trace bilateral pleural effusions. Mass in the left upper quadrant of the abdomen. No evidence of pulmonary embolism. Emphysematous lungs. CT abdomen and pelvis without contrast, June 15, 2016: Complex mass in the left upper quadrant measuring 7.5 x 8.0 x 6.5 cm, grown compared to October 23, 2015. PHYSICAL EXAMINATION: A 75-year-old lady with moderate shortness of breath. BMI 14.9, temperature 36.6, pulse 70. Respiratory rate 22, blood pressure 154/78, saturating 93% on 2 L OxyMask. Eyes: Normal pupils, conjunctivae. Ears, nose, and throat: Normal external appearance. Respiratory: Bilateral air entry. Cardiovascular: Regular rate and rhythm. Gastrointestinal: Abdomen soft, tender to deep palpation in the left upper abdomen. Musculoskeletal: Normal strength. Psychiatric: Alert, appropriate. Neurologic: No focal deficits. ASSESSMENT AND PLAN: Looking through her old CT scans, she had a cystic lesion in the pancreas, and though the most recent CT scan is hard to read given the lack of contrast, this mostly likely represents bleeding into a pancreatic cystic lesion. The patient is not interested in any kind of surgical interventions, so at this point, I think supportive management with transfusions or otherwise is reasonable, but given we are not pursuing any kind of surgical intervention, further imaging or characterization of what is going on might not be really worthwhile. Please call if there any questions.
[2016-06-16] VITALS (10 sets, daily range): BP systolic 118–141; BP diastolic 59–76; PULSE 61–85; RESP 17–24; O2SAT 93–99
[2016-06-16] MEDS: 0.9% Sodium Chloride 1,000 ML IV SCH ×2 (02:24→15:29)
[2016-06-16] MEDS: Pantoprazole 8 mg/Hr Infusion IV SCH ×4 (04:53→15:31)
--- NOTE | 2016-06-16 05:21 | NUR ---
shoulder pain pt with some left top of shoulder pain, pt requesting tylenol with little effect, repositioned with pillows and placed a heat pack and that helped with the pain. pt stating she thinks she hurt it by pulling her self over in bed.
[2016-06-16] MEDS: Insulin LISPRO 300 Unit/3 mL Inj SUBQ SCH ×4 (08:00→21:26)
[2016-06-16 08:19] LABS: BASOPHILS % (AUTO) 0 % (0-3); EOSINOPHILS % (AUTO) 0 % (0-5); MONOCYTES % (AUTO) 9.7 % (4-12); Mean Corpuscular Hemoglobin 28.2 pg (27.0-35.0); Mean Corpuscular Volume 87.6 fL (81-100); NEUTROPHILS % (AUTO) 74.5 % (40-74); Platelet Count 165 bil/L (150-400)
[2016-06-16] MEDS: predniSONE 20 mg Tablet PO SCH (08:37)
--- NOTE | 2016-06-16 09:12 | PCM.PNMED ---
Subjective Date of Service Jun 16, 2016 Subjective pt denies complaints - denies sob/cp, L shoulder pain improving - plan for repeat CT imaging tomorrow, last CT noted without contrast- hg stable, dc tomorrow likely. last BM yesterday Exam Vital Signs Vital Sign - Last Date Time Temp Pulse Resp B/P Pulse Ox O2 Delivery O2 Flow Rate FiO2 06/16/16 07:41 Supplement Oxygen 06/16/16 07:35 36.8 62 22 141/76 98 2.00 Intake and Output 06/15/16 06/15/16 06/16/16 Cumulative From/Thru 15:00 23:00 07:00 06/13/16 20:53 - 06/16/16 06:25 Intake Total 384 ml 566 ml 1423 ml 4721 ml Output Total 2525 ml 550 ml 5570 ml Balance 384 ml -1959 ml 873 ml -849 ml Intake Oral 60 ml 320 ml 1317 ml IV Total 384 ml 506 ml 1103 ml 3404 ml Output Urine Total 2525 ml 550 ml 5570 ml # Voids 8 8 # Bowel Movements 0 1 Exam General: Frail, cachectic female - nad Head:PERRLA. Sclera is anicteric Mouth: Moist oropharyngeal mucosae Neck: Neck supple , no JVD, trachea is midline. Chest& Lungs: decrease air enty . No wheezing. Cardiovascular: , Normal S1, Normal S2, No murmurs/rubs/gallops Abdomen: Non-tender, Non-distended, No masses, Normoactive bowel tones Extremities: No cyanosis/, no edema Neurological: Grossly non focal IVs and Medications Medications Reviewed: Medications were reviewed in detail Lab and Diagnostics Result Diagram: 06/16/16 0800 06/16/16 0800 12-lead ECG EKG reveals sinus at a rate of 78 QTC is 417 otherwise no acute abnormalities noted relative to previous EKGs she does have poor R-wave progression across precordium noted that is old. Assessment & Plan 75 year old female with a history of COPD who presents to the ED via EMS from [facility] complaining of shortness of breath, productive cough, and wheezing. Admitted for COPD exacerbation 1. Acute on chronic COPD exacerbation. Present on admission - Duonebs q 6hours - Albuterol nebs q2h PRN - Discontinue Prednisone tomorrow before dc - Supplemental oxygen for goal saturation >90% 2. Acute blood loss anemia. - H/H dropped to 6 06/14 while on heparin drip for ACS/PE coverage - CT neg for PE. - CT scan shows : A large complex mass in the left upper quadrant measuring 7.5 x 8.0 x 6.5 cm and demonstrates a fluid-fluid level. This has increased in size compared to 10/23/2015. Differential diagnoses include pancreatic pseudocyst , hematoma and versus cystic neoplasm Patient is known to have chronic pancreatic and pancreatic cyst,was seen by surgery but pt declined any possible surgical intervention. We will proceed with medical management. Heparin reversed with protamin sulfate and FFP transfusion. PTT, INR within normal limit now. I cut down on prednisone to 20 mg to reduce the risk of bleeding . ( She only get steroid for less than 48 hours : Solumedrol in ER then 60 mg of prednisone ) . Monitor H/H closely and transfuse PRN . It seems like the bleeding is contained , allow one more day to ensure stabilization and repeat CT scan tomorrow Discussed with GI and Surgery : no need for endoscopy. 3. Hyperglycemia, acute. Present on admission. Borderline DM - Glucose 175 on admission. No prior records of past medical history, but pt denies diabetes. - A1c -6.5 - Humalog low dose correctional scale 4. Hypertension, chronic - at goal - Continue home propranolol and aspirin 5. Depression - Continue home sertraline and zolpidem 6. GERD - Continue home ranitidine 7. Active smoker : quit 3 -4 months ago - Continue nicotine patch Hemodynamically and clinically stable . Plan of care as above. monitor H/H and transfuse PRN. Pain Evaluation: Adequate Pain Control GI Prophylaxis: Proton Pump Inhibitor VTE Prophylaxis: Sub-Q Heparin (Unfractionated) VTE Mechanical Devices: Intermittant Pneumatic CD Resuscitation Status: DNR/DNI:Do Not Resuscitate/Intubate Time spent 45 minutes spent with eval and mgmt Ryan Zhang DO Jun 16, 2016 09:12
[2016-06-16] MEDS: Albuterol-Ipratropium 3 mL Inhalation Solution NEB SCH ×4 (11:23→20:50)
--- NOTE | 2016-06-16 15:48 | NUR ---
DC from PT Pt's progression of functional mobility is limited by respiratory status, and at this point no skillable service for progression of mobility is indicated. Pt will be discharged from PT at this time. It is encouraged that she ambulate w/nsg and/or respiratory therapy for increased activity tolerance.
--- NOTE | 2016-06-16 16:26 | NUR ---
Pain/mobility Pt reports slight discomfort to L shoulder, when asked. Declines to take any pain medication, repositioned for comfort. 1 PA to [facility]. Up in chair for meals. VSS. NSR 60s. Denies CP/Pressure. Addendum: 06/16/16 at 1636 by ANTONI CABA RN Tolerating general diet, small amounts. Denies nausea. Protonix gtt and NS running.
[2016-06-16] MEDS: Nitroglycerin 50 mg/250 mL D5W 50,000 MCG in IV Premix 1 EACH IV SCH (19:40)
[2016-06-17] VITALS (10 sets, daily range): BP systolic 118–139; BP diastolic 60–71; PULSE 59–65; RESP 19–28; O2SAT 91–98
[2016-06-17] MEDS: Pantoprazole 8 mg/Hr Infusion IV SCH ×6 (01:29→21:24)
--- NOTE | 2016-06-17 01:34 | NUR ---
P) Respiratory/pain/GI Pt. alert and oriented, up to commode for voiding, side rails up when sleeping per her request. Lungs with coarse, moist breath sounds, crackles and rales scattered throughout, moving more air on the L than the R, decreased in bases bilat. Cough productive of moderate amounts of blood flecked yellow to xiao phlegm, fairly severe shoulder and chest pain aggravated by cough. Pt. states she is feeling bloated and constipated, last stool 2 days ago. I) Meds per 's orders, senna given for constipation, pt. moves self in bed SBA for commode use and transfer to chair, pt. using call light appropriately, went over pulmonary hygiene. E) Resting quietly tonight, had ice cream snack at midnight.
[2016-06-17] MEDS: 0.9% Sodium Chloride 1,000 ML IV SCH ×2 (04:24→16:57)
[2016-06-17] MEDS: Insulin LISPRO 300 Unit/3 mL Inj SUBQ SCH ×4 (08:00→21:24)
[2016-06-17] MEDS: predniSONE 20 mg Tablet PO SCH (08:40)
--- NOTE | 2016-06-17 10:26 | PCM.PNMED ---
Subjective Date of Service Jun 17, 2016 Subjective Her breathing is about 40 or 50% improved. She still is coughing up a lot of productive phlegm which is yellow. No fevers or chills. Some chest pain with coughing. No nausea. She is relatively stable on her feet. She uses oxygen at [facility]. She denies rectal bleeding. Poor appetite. She is generally weak. Exam Vital Signs Vital Sign - Last Date Time Temp Pulse Resp B/P Pulse Ox O2 Delivery O2 Flow Rate FiO2 06/17/16 09:50 65 28 94 Nasal Cannula 3.00 06/17/16 07:46 36.6 139/71 Intake and Output 06/16/16 06/16/16 06/17/16 Cumulative From/Thru 15:00 23:00 07:00 06/13/16 20:53 - 06/17/16 06:43 Intake Total 956 ml 2173 ml 7850 ml Output Total 850 ml 6420 ml Balance 956 ml 1323 ml 1430 ml Intake Oral 1075 ml 2392 ml IV Total 956 ml 1098 ml 5458 ml Output Urine Total 850 ml 6420 ml # Voids 8 # Bowel Movements 0 1 Exam Alert and oriented 3, fluent speech. Chronically ill and frail Anicteric sclerae Neck is supple Lungs with good air movement and expiratory wheezing and prolongation of expiratory phase. Heart is distant regular without murmur. Abdomen soft nontender. Extremities are free edema. Pedal pulses. IVs and Medications Medications Reviewed: Medications were reviewed in detail Lab and Diagnostics Result Diagram: 06/16/16 0800 06/16/16 0800 12-lead ECG EKG reveals sinus at a rate of 78 QTC is 417 otherwise no acute abnormalities noted relative to previous EKGs she does have poor R-wave progression across precordium noted that is old. Assessment & Plan 75 year old female with a history of COPD who presents to the ED via EMS from [facility] complaining of shortness of breath, productive cough, and wheezing. Admitted for COPD exacerbation 1. Acute COPD exacerbation. Present on admission - Duonebs q 6hours - Albuterol nebs q2h PRN - Discontinue Prednisone tomorrow before dc - Supplemental oxygen for goal saturation >90% She has about 50% improved. I think she needs more marked in the hospital to be stable enough for discharge back to her [facility] facility. 2. Chronic hypoxic respiratory failure, POA. On chronic oxygen 3 L nasal cannula. 3.. Acute blood loss anemia. POA. Unclear cause. No clear evidence of GI bleed. - H/H dropped to 6 06/14 while on heparin drip for ACS/PE coverage - CT neg for PE. - CT scan shows : A large complex mass in the left upper quadrant measuring 7.5 x 8.0 x 6.5 cm and demonstrates a fluid-fluid level. This has increased in size compared to 10/23/2015. Differential diagnoses include pancreatic pseudocyst , hematoma and versus cystic neoplasm Patient is known to have chronic pancreatic and pancreatic cyst,was seen by surgery but pt declined any possible surgical intervention. We will proceed with medical management. Heparin reversed with protamin sulfate and FFP transfusion. PTT, INR within normal limit now. I cut down on prednisone to 20 mg to reduce the risk of bleeding . ( She only get steroid for less than 48 hours : Solumedrol in ER then 60 mg of prednisone ) . Monitor H/H closely and transfuse PRN . It seems like the bleeding is contained , allow one more day to ensure stabilization and repeat CT scan tomorrow Discussed with GI and Surgery : no need for endoscopy. At this point is possible that she has bled into a chronic cyst. She was given blood and now has a stable hematocrit. I believe one more day in the hospital to watch for evidence of rebleeding is merited. 4. Hyperglycemia, acute. Present on admission. Borderline DM - Glucose 175 on admission. No prior records of past medical history, but pt denies diabetes. - A1c -6.5 - Humalog low dose correctional scale , will continue to follow. This should improve as she comes off steroids. 4. Hypertension, chronic. POA. - at goal - Continue home propranolol and aspirin 5. Depression, POA. - Continue home sertraline and zolpidem 6. GERD - Continue home ranitidine 7. Active smoker : quit 3 -4 months ago - Continue nicotine patch Hemodynamically and clinically stable . Plan of care as above. monitor H/H and transfuse PRN. Her CODE STATUS is DNR/DNI. This is reconfirmed with her today. Discharge plan is for her likely return to [facility] on June 18. Pain Evaluation: Adequate Pain Control GI Prophylaxis: Proton Pump Inhibitor VTE Prophylaxis: Sub-Q Heparin (Unfractionated) VTE Mechanical Devices: Intermittant Pneumatic CD Resuscitation Status: DNR/DNI:Do Not Resuscitate/Intubate Time spent 30 minutes Jorge Alvarez MD Jun 17, 2016 10:26
[2016-06-17] MEDS: Albuterol-Ipratropium 3 mL Inhalation Solution NEB SCH ×4 (11:00→20:56)
--- NOTE | 2016-06-17 13:19 | NUR ---
Gave access and faxed facesheet, patient is LTC resident there. Addendum: 06/17/16 at 1445 by JAC GOLDMAN CM Called Dorothy Peoples CM at [place] and asked for review on patient for transfer to Detention. Updated TECHNICAL HEALTHCARE CONSULTANT Addendum: 06/17/16 at 1447 by JAC GOLDMAN CM CM actually is Maryjane [place] and she is reviewing patient now.
--- NOTE | 2016-06-17 15:06 | NUR ---
KENDAL signed KERON Urias
--- NOTE | 2016-06-17 15:06 | NUR ---
Social Work Note: Readiness for Discharge Data& Assessment: Per MD pt is getting closer to being medically ready for discharge. OLE met with pt at bedside to confirm discharge plan and assess for any unmet needs. Pt confirmed she lives at [facility] and would like to return there. Pt is anxious to get back home to [facility] and discharge from the hospital, pt explained that she was hoping to leave today. Pt denies any other needs at this time. [facility] has been updated that pt may be ready for discharge in the next 1-2 days. OLE also spoke with pt daughter Tabitha and confirmed discharge plan. Pt daughter Tabitha is unsure about transporting pt herself due to oxygen needs and is requesting wheelchair van transportation from [facility]. OLE confirmed with Meenu in Admissions from [facility] that Wheelchair transportation will be available for pt arranged by [facility] when she is medically ready for discharge. Pt and pt family deny any other needs. No other discharge needs identified at this time. SW to continue to follow. Plan: Anticipated discharge back to [facility] when medically ready via wheelchair van. Pt and pt family deny any other needs. No other discharge needs identified at this time. SW to continue to follow. KERON Urias
--- NOTE | 2016-06-17 19:08 | NUR ---
respiratory pt. on 4L NC sats mid 90's; denies sob at rest. Exertional dyspnea; pt. takes a few minutes to recover after transfers to [facility]. Moist, congested cough; thick xiao/green sputum. C/o chest/left shoulder discomfort with coughing; prn tylenol given this am; refused prn tylenol this afternoon stating she wanted to wait and take it with her sleeping pill tonight. Receiving scheduled nebs.
[2016-06-17] MEDS: Nitroglycerin 50 mg/250 mL D5W 50,000 MCG in IV Premix 1 EACH IV SCH (19:40)
--- NOTE | 2016-06-17 21:41 | NUR ---
Pain Pt states that "my ribs hurt from right to left" and points to the upper anterior portion of her chest. She states that the pain is "worse with couging'. Given PO tylenol. Will monitor for effectiveness
[2016-06-18] VITALS (8 sets, daily range): BP systolic 134–188; BP diastolic 68–84; PULSE 58–75; RESP 18–24; O2SAT 88–96
[2016-06-18] MEDS: 0.9% Sodium Chloride 1,000 ML IV SCH (04:21)
[2016-06-18] MEDS: Pantoprazole 8 mg/Hr Infusion IV SCH ×2 (04:55)
--- NOTE | 2016-06-18 05:54 | NUR ---
Comfort Pt slept thru most of the night. No further complaint of rib pain. Up with minimal assist to the commode. Oxygen weaned to 3L nc
[2016-06-18] MEDS: Insulin LISPRO 300 Unit/3 mL Inj SUBQ SCH ×2 (08:00→12:00)
[2016-06-18] MEDS: Albuterol-Ipratropium 3 mL Inhalation Solution NEB SCH ×2 (08:18→11:45)
[2016-06-18] MEDS ORDERED: predniSONE 20 mg Tablet PO SCH (08:30)
[2016-06-18 10:50] LABS: Mean Corpuscular Hemoglobin 27.6 pg (27.0-35.0); Mean Corpuscular Volume 88.1 fL (81-100)
--- NOTE | 2016-06-18 11:11 | PCM.DIMED ---
Discharge Instructions Date of Service Jun 18, 2016 Dates of Hospitalization Jun 13, 2016 at 23:36 Discharge Diagnosis Discharge Diagnosis 1. Acute COPD exacerbation. Improved. 2. Chronic hypoxic respiratory failure,on chronic oxygen 3 L nasal cannula. 3. Acute blood loss anemia. POA. Unclear cause. Improved. 4. DM 2, on metformin 5. Hypertension, essential. 6. Depression. 7. GERD. 8. Tobacco dependence. 9. Chronic pancreatic cyst Diet Heart Healthy Activity Limited until seen by PCP Call your provider Fever or Chills, Shortness of breath, Chest pain Patient Instructions He will be seen by the shelter doctor within the next week at the shelter. Follow-up Provider: Marisa Tom MD Follow-up with PCP in: 1 week Jorge Alvarez MD Jun 18, 2016 11:11 Jorge Alvarez MD Jun 18, 2016 11:11
[2016-06-18] MEDS ORDERED: PRE20 PO (11:13)
--- NOTE | 2016-06-18 11:28 | NUR ---
Social Work: Discharge D: Pt discussed in am rounds. Pt is medically stable for discharge. Pt is a private pay LTC resident at [facility] and has been accepted back with Dr. Garcia to follow. Pt's /[place] authorization has been declined and pt will be returning as a private pay resident. SLEDGER met with pt at bedside to confirm discharge plan. Pt states that she wishes to return to [facility] and understands it is private pay. She states her daughter was at bedside earlier and that her daughter is aware of discharge back to [facility]. SLEDGER called and left a message also informing pt's daughter about discharge and /[place] denial for SNF coverage. Bedside RN confirms dtr was present at bedside and knows of discharge. SLEDGER spoke with Meenu Billingsley at [facility]. They have a bed available for the pt today. Transportation arranged 1:00. Bedside RN and pt are aware. [facility] has faxed orders and scripts. Copies on chart. A: Pt who is a LTC resident at [facility] (private pay). P: Pt to discharge back to [facility] today with Dr. Garcia to follow; transport at 1:00pm. KERON Jiménez
--- NOTE | 2016-06-18 13:11 | NUR ---
Discharge of patient Reviewed discharge instructions with patient. Pt verbalized understanding. Pt discharged via wheelchair with prescriptions and instructions. IV and Telemetry previously discontinued. Pt left hospital with [facility] transporter to [facility]. Report given to Maribel Pope RN.
--- NOTE | 2016-06-20 14:44 | PCM.DC.MED ---
Discharge Summary Date of Service Jun 18, 2016 Dates of Hospitalization Date of Hospital Admission Jun 13, 2016 at 23:36 Date of Discharge: Jun 18, 2016 Providers: Admitting Physician: Charleen Joshi MD Primary Care Physician: Todd Garcia DO Attending Physician: Charleen Joshi MD Diagnosis at Time of Discharge Diagnosis at Time of Discharge 1. Acute COPD exacerbation. Improved. 2. Chronic hypoxic respiratory failure,on chronic oxygen 3 L nasal cannula. 3. Acute blood loss anemia. POA. Unclear cause. Improved. 4. DM 2, on metformin 5. Hypertension, essential. 6. Depression. 7. GERD. 8. Tobacco dependence. 9. Chronic pancreatic cyst Consultations Pulmonary, Dr. Tubbs Procedures XRay, CTs & MRIs Chest CT angiogram: IMPRESSION: 1. No evidence for acute central pulmonary embolism. 2. Right basilar pneumonia or atelectasis. 3. Moderate emphysema. 4. Chronic interstitial lung disease with subpleural septal thickening and mild bronchiectasis. 5. Trace bilateral pleural effusions. 6. Mild mediastinal lymphadenopathy. This finding is nonspecific and requires clinical correlation and follow up. 7. A mass in the left upper quadrant abdomen. Please see separate CT abdomen for detail. 8. Moderate nonacute compression fracture at T8 and mild compression fracture at T12. There are also old right rib fractures. Abdomen CT: IMPRESSION: 1. A large complex mass in the left upper quadrant measuring 7.5 x 8.0 x 6.5 cm and demonstrating a fluid-fluid level. This has increased in size compared to . Differential diagnoses include pancreatic pseudocyst, hematoma and a cystic neoplasm. 2. Pancreatic calcifications consistent with chronic pancreatitis. 3. Moderate compression fracture of T12. 4. Small bilateral perfusions and bibasilar atelectasis. Chest x-ray IMPRESSION: Chronic diffuse/interstitial disease. No acute consolidation ECG 12 Lead EKG reveals sinus at a rate of 78 QTC is 417 otherwise no acute abnormalities noted relative to previous EKGs she does have poor R-wave progression across precordium noted that is old. Cardiac Echo Impression Interpretation Summary 1. Normal left ventricular size, wall thickness with preserved systolic function and an estimated EF of 55 to 60% 2. Grossly normal right ventricular size and systolic function. The estimated RVSP is 39 mm Hg 3. No evidence for significant valvular pathology If further evaluation of wall motion is desired consider definity contrast. There is no old study for comparison Invasive Procedures None Brief History Patient is a 75 year old female with a history of COPD who presents to the ED via EMS from [facility] complaining of shortness of breath. Per EMS, the patient was found in tripod position. Oxygen stat en route was 88-90%. She recently has had previous episodes of similar symptoms. She reports a productive cough with yellow sputum and wheezing, as well as decreased appetite for 2-3 days. She denies chest pain, abdominal pain, N/V/D, fevers, chills, or weakness. She was seen in clinic for pneumonia and COPD in April and was treated with a course of prednisone. In the ED, she initially presented with a temp of 37.2, HR 80, RR 36, satting 85 % on 7L mask. EKG showed sinus rhythm. CXR showed chronic diffuse/interstitial disease with no acute consolidation. An ABG showed pH 7.423, pCO2 45.8, pO2 77, and bicarb of 29.3. She was placed on BiPAP for a period of time and her oxygen saturation improved to the 90s. She was eventually unable to tolerate the BiPAP and was able to maintain saturation on oxymask after nebulizers and Solu Medrol. Patient's history is limited and she cannot recall much of her medical history. Hospital Course 75 year old female with a history of COPD who presents to the ED via EMS from [facility] complaining of shortness of breath, productive cough, and wheezing. Admitted for COPD exacerbation 1. Acute COPD exacerbation. Present on admission - Duonebs q 6hours - Albuterol nebs q2h PRN - Discontinue Prednisone tomorrow before dc - Supplemental oxygen for goal saturation >90% She has about 50% improved. I think she needs more marked in the hospital to be stable enough for discharge back to her [facility] facility. 2. Chronic hypoxic respiratory failure, POA. On chronic oxygen 3 L nasal cannula. 3.. Acute blood loss anemia. POA. Unclear cause. No clear evidence of GI bleed. - H/H dropped to 6 3/12 while on heparin drip for ACS/PE coverage - CT neg for PE. - CT scan shows : A large complex mass in the left upper quadrant measuring 7.5 x 8.0 x 6.5 cm and demonstrates a fluid-fluid level. This has increased in size compared to 10/23/2015. Differential diagnoses include pancreatic pseudocyst , hematoma and versus cystic neoplasm Patient is known to have chronic pancreatic and pancreatic cyst,was seen by surgery but pt declined any possible surgical intervention. We will proceed with medical management. Heparin reversed with protamin sulfate and FFP transfusion. PTT, INR within normal limit now. I cut down on prednisone to 20 mg to reduce the risk of bleeding . ( She only get steroid for less than 48 hours : Solumedrol in ER then 60 mg of prednisone ) . Monitor H/H closely and transfuse PRN . It seems like the bleeding is contained , allow one more day to ensure stabilization and repeat CT scan tomorrow Discussed with GI and Surgery : no need for endoscopy. At this point is possible that she has bled into a chronic cyst. She was given blood and now has a stable hematocrit. I believe one more day in the hospital to watch for evidence of rebleeding is merited. 4. Hyperglycemia, acute. Present on admission. Borderline DM - Glucose 175 on admission. No prior records of past medical history, but pt denies diabetes. - A1c -6.5 - Humalog low dose correctional scale , will continue to follow. This should improve as she comes off steroids. 4. Hypertension, chronic. POA. - at goal - Continue home propranolol and aspirin 5. Depression, POA. - Continue home sertraline and zolpidem 6. GERD - Continue home ranitidine 7. Active smoker : quit 3 -4 months ago - Continue nicotine patch Hemodynamically and clinically stable . Plan of care as above. monitor H/H and transfuse PRN. Her CODE STATUS is DNR/DNI. This is reconfirmed with her today. Discharge plan is for her likely return to [facility] on June 18. Exam Vital Signs (Last) Date Time Temp Pulse Resp B/P Pulse Ox O2 Delivery O2 Flow Rate FiO2 06/18/16 11:45 65 20 90 Nasal Cannula 3.00 06/18/16 11:38 154/81 06/18/16 10:40 36.8 Exam Patient was seen and examined on the day of discharge Test 06/13/16 20:58 06/13/16 21:43 06/14/16 01:14 06/14/16 07:19 Pro-B-Type Natriuretic Peptide 931.8pg/mL (0-738) Procalcitonin 0.04ng/mL (0.00-0.08) Lactic Acid Level 0.8mmol/L (0.4-2.0) Urine Color Yellow (YELLOW) Urine Appearance Clear (CLEAR,HAZY) Urine pH 5.5 (5.0-8.0) Urine Specific [place] 1.020 (1.003-1.035) Urine Protein Negativemg/dL (NEG,TRACE) Urine Glucose (UA) Negativemg/dL (NEGATIVE) Urine Ketones Negativemg/dL (NEGATIVE) Urine Occult Blood Negative (NEGATIVE) Urine Nitrite Negative (NEGATIVE) Urine Bilirubin Negative (NEGATIVE) Urine Urobilinogen Normalmg/dL (NORMAL) Urine Leukocyte Esterase Negative (NEGATIVE) Urine RBC 0-2/hpf (0-2) Urine WBC 0-5/hpf (0-5) Urine Epithelial Cells Few/hpf (NONE-MOD) Urine Crystals Oxalic acid crystals (NONE Urine Bacteria None/hpf (NONE-FEW) Urine Hyaline Casts None/lpf (NONE) Urine Granular Casts None seen (NONE SEEN) Urine Waxy Casts None seen (NONE SEEN) Urine Red Blood Cell Casts None seen (NONE SEEN) Urine White Blood Cell Casts None seen (NONE SEEN) Urine Mucus None seen (None Seen) Urine Trichomonas None seen (NONE SEEN) Urine Yeast None (NONE SEEN) Urine Culture Reflexed Not indicated Hemoglobin A1c 6.5% (4.8-5.6) Total Bilirubin 0.2mg/dL (0.0-1.2) Aspartate Amino Transf (AST/SGOT) 15U/L (0-50) Alanine Aminotransferase (ALT/SGPT) 9U/L (0-32) Alkaline Phosphatase 83U/L (25-165) Total Protein 7.0g/dL (6.4-8.4) Albumin 3.3g/dL (3.4-5.0) Test 06/15/16 08:08 06/15/16 13:42 06/16/16 08:00 06/18/16 10:45 Prothrombin Time 10.7sec (8.1-12.5) Prothromb Time International Ratio 1.00ratio Activated Partial Thromboplast Time 24.4sec (22.8-33.0) Amylase Level 212U/L (28-100) Lipase 168U/L (13-60) CA 19-9 Antigen 36U/mL (0-35) Troponin T < 0.010ug/L (0.0-0.011) Neutrophils (%) (Auto) 74.5% (40-74) Lymphocytes (%) (Auto) 15.3% (14-46) Monocytes (%) (Auto) 9.7% (4-12) Eosinophils (%) (Auto) 0% (0-5) Basophils (%) (Auto) 0% (0-3) White Blood Count 8.6th/mm3 (3.8-10.1) Red Blood Count 4.21mil/mm3 (3.90-5.20) Hemoglobin 11.6g/dL (12.0-15.6) Hematocrit 37.1% (35.0-46.0) Mean Corpuscular Volume 88.1fL (81-100) Mean Corpuscular Hemoglobin 27.6pg (27.0-35.0) Mean Corpuscular Hemoglobin Concent 31.3% (32.0-37.0) Red Cell Distribution Width 15.2% (12.3-15.4) Platelet Count 206bil/L (150-400) Sodium Level 135mEq/L (134-144) Potassium Level 4.3mEq/L (3.5-5.2) Chloride Level 98mEq/L (97-108) Carbon Dioxide Level 27mmol/L (18-29) Blood Urea Nitrogen 8mg/dL (8-27) Creatinine 0.49mg/dL (0.57-1.00) Estimat Glomerular Filtration Rate 175mL/min (>59) Glucose Level 139mg/dL (60-99) Calcium Level 8.1mg/dL (8.5-10.1) Discharge Medications Discharge Medications Albuterol HFA (Proair HFA) 8.5 Gm Hfa.aer.ad 2 PUFFS INHALATION Q4H (Reported) Albuterol Neb Soln (Albuterol Neb Soln) 0.63 Mg/3 Ml Vial.neb 0.63 MG INHALATION QID (Reported) Aspirin (Aspirin) 81 Mg Tablet 81 MG PO DAILY (Reported) Beclomethasone Dipropionate (Qvar) 8.7 Gm Aer.w.adap 1 PUFF INHALATION BID ( Reported) Calcium Carbonate (Tums) 500 Mg Tab.chew 500 MG PO DAILYWD (Reported) Diltiazem (Diltiazem) 30 Mg Tablet 30 MG PO TID (Reported) Docusate Sodium (Colace) 100 Mg Capsule 100 MG PO DAILY (Reported) Ergocalciferol (Vitamin D2) (Vitamin D2) 2,000 Unit Tablet 2,000 UNIT PO DAILY ( Reported) Ferrous Sulfate (Iron) 325 Mg Capsule.er 325 MG PO DAILY (Reported) Fexofenadine (Fexofenadine) 180 Mg Tablet 180 MG PO DAILY (Reported) DAILY NEEDED FOR ALLERGIES Fluticasone Propionate (Fluticasone Propionate) 50 Mcg/Actuation [place].susp 1 SPRAY NASAL DAILY (Reported) Metformin (Metformin) 500 Mg Tablet 500 MG PO DAILY (Reported) Multivitamin (Once Daily) 1 Each Tablet 1 EACH PO DAILY (Reported) Prednisone (PredniSONE) 20 Mg Tablet 20 MG PO DAILY Prescribed by: JORGE DORSEY MD Propranolol HCl (Propranolol HCl) 80 Mg Tablet 80 MG PO BID (Reported) Ranitidine (Ranitidine) 150 Mg Capsule 150 MG PO BID (Reported) Sertraline HCl (Sertraline) 25 Mg Tablet 25 MG PO DAILY (Reported) Tiotropium [place] (Spiriva) 18 Mcg Cap.w.dev 18 MCG IH DAILY (Reported) As needed Acetaminophen (Acetaminophen) 325 Mg Tablet 650 MG PO Q4H PRN PRN For Pain ( Reported) Albuterol Neb Soln (Albuterol Neb Soln) 0.63 Mg/3 Ml Vial.neb 0.63 MG INHALATION Q4H PRN PRN For Shortness of Breath (Reported) Zolpidem (Ambien) 5 Mg Tablet 5 MG PO HS PRN PRN For Insomnia (Reported) Followup Plan Disposition: [facility] facility Discharge Diet: Heart Healthy Discharge Activity: Limited until seen by PCP Patient Instructions He will be seen by the [facility] doctor within the next week at the [facility]. Follow-up Provider: Marisa Tom MD Follow-up with PCP in: 1 week Time spent 60 minutes, not with [id number] Jorge Dorsey MD Jun 20, 2016 14:44
== END 2016-06-18 13:07 | DRG 189 ==
LOC: SED 20:43 → EDBD 20:43 → MPC 23:36 → INTOOBSV 23:36 → OBSVTOIN 23:36 → MPC 06-14 00:07 → CCU 06-14 19:23 → PCC 06-15 18:00
PROVIDERS: ADMIT Specialist; ATTEND Specialist
PROC: 4A033B1 Measurement of Arterial Pressure, Peripheral, Percutaneous Approach (ICD-10-PCS; principal; 2016-06-13)
PROC: 30233K1 Transfusion of Nonautologous Frozen Plasma into Peripheral Vein, Percutaneous Approach (ICD-10-PCS; 2016-06-15)
PROC: 30233N1 Transfusion of Nonautologous Red Blood Cells into Peripheral Vein, Percutaneous Approach (ICD-10-PCS; 2016-06-15)
DX: J96.21 Acute and chronic respiratory failure with hypoxia (principal); J44.1 Chronic obstructive pulmonary disease with (acute) exacerbation; D62 Acute posthemorrhagic anemia; R64 Cachexia; Z68.1 Body mass index [BMI] 19.9 or less, adult; K86.2 Cyst of pancreas; E44.0 Moderate protein-calorie malnutrition; R19.02 Left upper quadrant abdominal swelling, mass and lump; F32.9 Major depressive disorder, single episode, unspecified; K21.9 Gastro-esophageal reflux disease without esophagitis; R73.9 Hyperglycemia, unspecified; I10 Essential (primary) hypertension; Z66 Do not resuscitate; Z87.891 Personal history of nicotine dependence; Z79.82 Long term (current) use of aspirin; Z79.51 Long term (current) use of inhaled steroids

== ENCOUNTER 2016-06-19 15:01 | Inpatient (IN) | payer MEDICARE ==
[~2016-06-19] VITALS: Ht 170.2 cm; Wt 47.0 kg
[~2016-06-19 15:01] MED LIST: ACET325T51 PO; ALBU0.63 INHALATION; ALBU8.5H2 INHALATION; ASPI-973 PO; BECL8.7A6 INHALATION; CALC500T9 PO; DILT30TA PO; DOCU-41 PO; ERGO2000 PO; FERR325C PO; FEXO-106 PO; FLUT15.88 NASAL; Ketamine 10 mg/mL 20 mL Inj ONE; METF500T4 PO; MULT-666 PO; PRE20 PO; PROP80TA4 PO; RANI150C4 PO; SERT25TA6 PO; TIOT18CA3 IH; ZLP5T PO; fentaNYL-PF 50 mCg/mL 2 mL Inj ONE
[2016-06-19 15:09] VITALS: BP 124/66; PULSE 66; RESP 18; O2SAT 93
--- NOTE | 2016-06-19 15:57 | ED.REPORT ---
HPI-Hip/Pelvis Prob/Inj Date of Service Jun 19, 2016 ED Provider: Dr. PATIÑO A 75 year old female with a history of COPD, diabetes, arthritis, and GERD presents to the ED via EMS from [facility] complaining of pain in left hip and pelvis. Per acquaintance in room, the patient was sitting on her bed eating and suddenly slipped off onto the floor, landing on her left hip. The patient denies any fever, vomiting or increased SOB, the patient having baseline SOB related to her COPD. The patient was recently hospitalized for 3 days for Pneumonia and COPD where she was given a blood transfusion. The patient is not currently taking any blood thinners. Nursing Notes Stated Complaint: GLF Chief Complaint: Extremity Trauma Nursing Notes Reviewed: Yes Allergies: Coded Allergies: Penicillins (Verified Allergy, Intermediate, 06/13/16) Scheduled Albuterol HFA (Proair HFA) 8.5 Gm Hfa.aer.ad 2 PUFFS INHALATION Q4H Albuterol Neb Soln (Albuterol Neb Soln) 0.63 Mg/3 Ml Vial.neb 0.63 MG INHALATION QID Aspirin (Aspirin) 81 Mg Tablet 81 MG PO DAILY Beclomethasone Dipropionate (Qvar) 8.7 Gm Aer.w.adap 1 PUFF INHALATION BID Calcium Carbonate (Tums) 500 Mg Tab.chew 500 MG PO DAILYWD Diltiazem (Diltiazem) 30 Mg Tablet 30 MG PO TID Docusate Sodium (Colace) 100 Mg Capsule 100 MG PO DAILY Ergocalciferol (Vitamin D2) (Vitamin D2) 2,000 Unit Tablet 2,000 UNIT PO DAILY Ferrous Sulfate (Iron) 325 Mg Capsule.er 325 MG PO DAILY Fexofenadine (Fexofenadine) 180 Mg Tablet 180 MG PO DAILY DAILY NEEDED FOR ALLERGIES Fluticasone Propionate (Fluticasone Propionate) 50 Mcg/Actuation [place].susp 1 SPRAY NASAL DAILY Metformin (Metformin) 500 Mg Tablet 500 MG PO DAILY Multivitamin (Once Daily) 1 Each Tablet 1 EACH PO DAILY Prednisone (PredniSONE) 20 Mg Tablet 20 MG PO DAILY Propranolol HCl (Propranolol HCl) 80 Mg Tablet 80 MG PO BID Ranitidine (Ranitidine) 150 Mg Capsule 150 MG PO BID Sertraline HCl (Sertraline) 25 Mg Tablet 25 MG PO DAILY Tiotropium [place] (Spiriva) 18 Mcg Cap.w.dev 18 MCG IH DAILY Scheduled PRN Acetaminophen (Acetaminophen) 325 Mg Tablet 650 MG PO Q4H PRN PRN For Pain Albuterol Neb Soln (Albuterol Neb Soln) 0.63 Mg/3 Ml Vial.neb 0.63 MG INHALATION Q4H PRN PRN For Shortness of Breath Zolpidem (Ambien) 5 Mg Tablet 5 MG PO HS PRN PRN For Insomnia General Time Seen by Provider: 15:57 Transferred From: [facility] Chief Complaint Hip injury left Hx Obtained From: Patient, Other family... (unspecified aquaintance), EMS Arrived By: Ambulance Onset Occurred: 1 - 4 hours ago Symptom Duration: Since onset Recent Healthcare: Recent hospitalization Similar Sx Previous: No Past Medical History Past Medical History Patient is DNR. GERD. Reports: COPD, Diabetes mellitus Past Surgical History none reported. Smoking History Former Smoker Ambulatory Status Independent Review of Systems Constitutional: Denies: Fever Musculoskeletal: Reports: Extremity pain (left hip/ pelvis) Complete sys rev & neg: except as marked. Respiratory: Denies: Shortness of breath GI: Denies: Vomiting Physical Exam Initial Vital Signs Vital Signs (First) Date Time Temp Pulse Resp B/P Pulse Ox O2 Delivery O2 Flow Rate FiO2 06/19/16 15:09 36.8 66 18 124/66 93 Room Air Initial VS: Vital signs normal Head / Eyes: Atraumatic ENT: Mucous membranes moist Neck: Supple Cardiovascular: Regular rate & rhythm Abdomen / GI: Soft Upper Extremities: No swelling, No tenderness Skin: Warm, Dry, No cyanosis Neurologic: Alert, Oriented Psychiatric: Mood/affect normal Left hip tenderness, pain with axial rotation, neurovascularly intact. Neurologic Neurologic: No motor deficits, No sensory deficits Interpretation & Diagnostics Lab Results Interpretation Result Diagram: 06/19/16 1651 06/19/16 1651 Test 06/19/16 16:51 White Blood Count 9.1th/mm3 (3.8-10.1) Red Blood Count 3.56mil/mm3 (3.90-5.20) Hemoglobin 10.0g/dL (12.0-15.6) Hematocrit 31.0% (35.0-46.0) Mean Corpuscular Volume 87.1fL (81-100) Mean Corpuscular Hemoglobin 28.1pg (27.0-35.0) Mean Corpuscular Hemoglobin Concent 32.3% (32.0-37.0) Red Cell Distribution Width 15.1% (12.3-15.4) Platelet Count 227bil/L (150-400) Neutrophils (%) (Auto) 84.2% (40-74) Lymphocytes (%) (Auto) 6.9% (14-46) Monocytes (%) (Auto) 7.1% (4-12) Eosinophils (%) (Auto) 0.1% (0-5) Basophils (%) (Auto) 0.1% (0-3) Prothrombin Time 10.3sec (8.1-12.5) Prothromb Time International Ratio 0.96ratio Sodium Level 130mEq/L (134-144) Potassium Level 3.8mEq/L (3.5-5.2) Chloride Level 96mEq/L (97-108) Carbon Dioxide Level 24mmol/L (18-29) Blood Urea Nitrogen 23mg/dL (8-27) Creatinine 0.62mg/dL (0.57-1.00) Estimat Glomerular Filtration Rate 134mL/min (>59) Glucose Level 245mg/dL (60-99) Calcium Level 8.5mg/dL (8.5-10.1) Total Bilirubin 0.2mg/dL (0.0-1.2) Aspartate Amino Transf (AST/SGOT) 16U/L (0-50) Alanine Aminotransferase (ALT/SGPT) 20U/L (0-32) Alkaline Phosphatase 70U/L (25-165) Total Protein 6.3g/dL (6.4-8.4) Albumin 2.8g/dL (3.4-5.0) Hold [place] Top Tube Received (Received) X-Ray Chest Interpretation Chest Xray Interpretation: IMPRESSION: No acute process. Dictated by: Rio Larsen M.D. on 06/19/2016 at 16:33 Approved by: Rio Larsen M.D. on 06/19/2016 at 16:34 View: Portable, 1 view Interpretation / Wet Read by: Interpret - Radiologist X-Ray Interpretation Xray Interpretation: Hip/Pelvis XRay IMPRESSION: Left intertrochanteric hip fracture. Dictated by: Rio Larsen M.D. on 06/19/2016 at 16:31 Approved by: Rio Larsen M.D. on 06/19/2016 at 16:32 Interpretation / Wet Read by: Interpret - Radiologist Re-Eval/Medical Decision Med Decision/Clinical Course Left intertrochanteric femur fracture with minimal trauma. Patient will be admitted. Source of Hx: Old records, EMS Re-Evaluation/Progress : Time of Eval: 15:57 Re-Evaluation/Progress Note: Rechecked patient and explained plan for treatment. Consultation #1: Referral / Consult Name: Ephraim Davila DO Consulted With: Orthopedic Call Returned at: 16:44 Botany Professor: Will see patient, Agrees with eval, Agrees with plan Note: Discussed patient case with Dr. Davila who agrees to perform hip surgery on the patient in the morning. Consultation #2: Referral / Consult Name: Ryan Mccabe MD Call Returned at: 17:30 Botany Professor: Agrees with eval, Agrees with plan, Accepts admit Note: Discussed patient case with Dr. Mccabe who accepts patient admit. Counseled Regarding: Diagnosis, Lab results, Need for admission Discharge & Departure Disposition: ADMITTED TO HOSPITAL Discharge Condition All VS Reviewed: Yes Condition: Improved Referrals: Todd Garcia DO (PCP) Iron Attestation Portions of this note were transcribed by Simeon Dallas. I, Dr. Patiño personally performed the history, physical exam and medical decision-making; I reviewed and confirmed the accuracy of the information in the transcribed note. Signed by: Iron Reis, 06/19/2016 4514. copies to: Todd Garcia Timothy S DO Jun 19, 2016 15:57 Simeon Dallas Jun 19, 2016 16:09
--- NOTE | 2016-06-19 16:33 | DRSVH ---
PROCEDURE: X-RAY PELVIS W/LAT HIP (LT) ([id number]) INDICATIONS: left hip pain r/t GROUND LEVEL FALL TECHNIQUE: AP pelvis with lateral view(s) of the left hip(s). COMPARISON: [facility], CT, CT ABD PELVIS WO CON, 06/15/2016, 2:17. FINDINGS: Bones: Linear lucency traverses the left intertrochanteric femur, indicating a moderately displaced i ntertrochanteric hip fracture. Chronic left obturator ring fracture is present. Soft tissues: The visualized bowel gas pattern is normal. No suspicious soft tissue calcifications. IMPRESSION: Left intertrochanteric hip fracture. Dictated by: Rio Larsen M.D. on 06/19/2016 at 16:31 Approved by: Rio Larsen M.D. on 06/19/2016 at 16:32
--- NOTE | 2016-06-19 16:35 | DRSVH ---
PROCEDURE: X-RAY CHEST ONE VIEW ([id number]) INDICATIONS: FALL HIP PAIN TECHNIQUE: One view of the chest was acquired. COMPARISON: [facility], , CHEST 1 VIEW, 04/09/2016, 14:51. FINDINGS: Surgical changes and devices: None. Lungs and pleura: No pleural effusions or pneumothorax. Lungs are clear. Mediastinum: Mediastinal contours appear normal. Heart size is normal. Bones and chest wall: No suspicious bony lesions. Overlying soft tissues appear unremarkable. IMPRESSION: No acute process. Dictated by: Rio Larsen M.D. on 06/19/2016 at 16:33 Approved by: Rio Larsen M.D. on 06/19/2016 at 16:34
[2016-06-19] MEDS ORDERED: 0.9% Sodium Chloride 1,000 ML IV SCH ×2 (16:40→17:38)
[2016-06-19 17:00] LABS: BASOPHILS % (AUTO) 0.1 % (0-3); EOSINOPHILS % (AUTO) 0.1 % (0-5); MONOCYTES % (AUTO) 7.1 % (4-12); Mean Corpuscular Hemoglobin 28.1 pg (27.0-35.0); Mean Corpuscular Volume 87.1 fL (81-100); NEUTROPHILS % (AUTO) 84.2 % (40-74); Platelet Count 227 bil/L (150-400)
[2016-06-19] MEDS ORDERED: Ondansetron 2 mg/mL 2 mL Inj IVPUSH PRN ×3 (17:15→17:45)
[2016-06-19 17:18] LABS: INR 0.96 ratio
[2016-06-19] MEDS ORDERED: Alum-Mag Hydrox-Simeth 30 mL Suspension PO PRN ×2 (17:40→17:45)
[2016-06-19] MEDS: Lactated Ringer's 1,000 ML IV SCH (17:44)
[2016-06-19] MEDS ORDERED: Polyethylene Glycol (PEG) 17 Gm Powder PO PRN (17:45)
--- NOTE | 2016-06-19 18:10 | PCM.HPMED ---
Subjective Date of Service Jun 19, 2016 Primary Provider: Admitting Physician: Ryan Mccabe MD Primary Care Physician: Todd Garcia DO Attending Physician: Ryan Mccabe MD Chief Complaint: Status post accidental fall and left intertrochanteric fracture. Hip pain History of Present Illness: This is a 75 is female with past medical history chronic respiratory failure, recently discharged from the hospital to senior care after treatment for COPD exacerbation, intra-abdominal bleed suspected from pancreatic cyst hemorrhage. She was on heparin for chest pain and suspicious of acute ACS. She received multiple units of PRBC ( 3) and her bleeding was contained with protamine sulfate transfusion and FFP. She was discharged in stable condition. Today she is brought to the emergency room after she sustained an accidental fall at the senior care. Patient stated she was sitting at the edge of the bed , probably in a position that she should not she mentioned, she slipped and felt hitting her left hip mainly. She denies hitting her head. X-ray in the emergency room show a left intratrochanteric fracture. Patient is admitted and orthopedics was consulted for possible intervention Review of Systems: Review of systems is pertinent for fall otherwise a 12 point review of system is negative Allergies Coded Allergies: Penicillins (Verified Allergy, Intermediate, 06/13/16) Home Medications Scheduled Albuterol HFA (Proair HFA) 8.5 Gm Hfa.aer.ad 2 PUFFS INHALATION Q4H Albuterol Neb Soln (Albuterol Neb Soln) 0.63 Mg/3 Ml Vial.neb 0.63 MG INHALATION QID Aspirin (Aspirin) 81 Mg Tablet 81 MG PO DAILY Beclomethasone Dipropionate (Qvar) 8.7 Gm Aer.w.adap 1 PUFF INHALATION BID Calcium Carbonate (Tums) 500 Mg Tab.chew 500 MG PO DAILYWD Diltiazem (Diltiazem) 30 Mg Tablet 30 MG PO TID Docusate Sodium (Colace) 100 Mg Capsule 100 MG PO DAILY Ergocalciferol (Vitamin D2) (Vitamin D2) 2,000 Unit Tablet 2,000 UNIT PO DAILY Ferrous Sulfate (Iron) 325 Mg Capsule.er 325 MG PO DAILY Fexofenadine (Fexofenadine) 180 Mg Tablet 180 MG PO DAILY DAILY NEEDED FOR ALLERGIES Fluticasone Propionate (Fluticasone Propionate) 50 Mcg/Actuation [place].susp 1 SPRAY NASAL DAILY Metformin (Metformin) 500 Mg Tablet 500 MG PO DAILY Multivitamin (Once Daily) 1 Each Tablet 1 EACH PO DAILY Prednisone (PredniSONE) 20 Mg Tablet 20 MG PO DAILY Propranolol HCl (Propranolol HCl) 80 Mg Tablet 80 MG PO BID Ranitidine (Ranitidine) 150 Mg Capsule 150 MG PO BID Sertraline HCl (Sertraline) 25 Mg Tablet 25 MG PO DAILY Tiotropium [place] (Spiriva) 18 Mcg Cap.w.dev 18 MCG IH DAILY Scheduled PRN Acetaminophen (Acetaminophen) 325 Mg Tablet 650 MG PO Q4H PRN PRN For Pain Albuterol Neb Soln (Albuterol Neb Soln) 0.63 Mg/3 Ml Vial.neb 0.63 MG INHALATION Q4H PRN PRN For Shortness of Breath Zolpidem (Ambien) 5 Mg Tablet 5 MG PO HS PRN PRN For Insomnia PMH Type II diabetes, intra-abdominal bleed, type II diabetes, COPD, GERD, hypertension, depression Surgical History 1. Left elbow operation. 2. Hysterectom Family History Family history reviewed and is noncontributory to the present illness Social History Hx Alcohol Use: No Hx Substance Use: No Hx Tobacco Use: Yes Smoking Status: Former Smoker Exam Vital Signs Vital Sign - Last Date Time Temp Pulse Resp B/P Pulse Ox O2 Delivery O2 Flow Rate FiO2 06/19/16 15:09 36.8 66 18 124/66 93 Room Air Exam Constitutional : Frail, cachectic female, very pleasant, no acute distress Head / Eyes: Atraumatic, sclerae is anicteric ENT: Mucous membranes moist, no oral thrush Neck: Supple, trachea is midline. No JVD. Chest: Normal respiratory effort, no chest wall tenderness Cardiovascular: Regular rate & rhythm, no gallop, no murmur Abdomen / GI: Soft, nontender, nondistended. Normal bowel sounds all quadrants Upper Extremities: Left hip tenderness and swelling, pain with axial rotation Neurologic: Alert, Oriented. No sensory deficit Skin: Warm, Dry, No cyanosis, no rash, no ulcers Psychiatric: Mood/affect normal Lab and Diagnostics Result Diagram: 06/19/16 1651 06/19/16 165 X-Rays, CTs and MRIs He x-ray reviewed : Left intertrochanteric hip fracture. Checks x-ray reviewed : No acute intrapulmonary finding Assessment & Plan 1. Left intertrochanteric hip fracture. 2. Status post mechanical fall 3 chronic respiratory failure is again noted are COPD Chronic medical problems 1. COPD 2. 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 Type II diabetes 4. GERD Admit as inpatient for left intratrochanteric fracture. This is a patient who was discharged from the hospital yesterday to SNF and presented today after accidental fall and sustained a Left intertrochanteric hip fracture. Orthopedist consulted by ER physician Dr. Coello . Plan for OR possibly tomorrow . Bed rest. Pain control with morphine sulfate. Diabetic diet , sliding scale insulin with coverage and nothing by mouth after midnight. Home medications reviewed and reconciled. Metformin and aspirin on hold SCD for DVT prophylaxis. Management as per orthopedist. Patient is a moderate to high risk for general anesthesia given advanced age, chronic respiratory failure, and multiple comorbidities Pain Evaluation: Adequate Pain Control GI Prophylaxis: Proton Pump Inhibitor VTE Prophylaxis: SCDs Resuscitation Status: DNR/DNI:Do Not Resuscitate/Intubate Time spent 7 minutes Ryan Mccabe MD Jun 19, 2016 18:10
[2016-06-19 18:14] VITALS: BP 119/65; PULSE 64; RESP 16; O2SAT 93
[2016-06-19 18:43] VITALS: BP 170/71; PULSE 63; RESP 20; O2SAT 96
--- NOTE | 2016-06-19 18:50 | NUR ---
Arrival to 1014 Pt transferred to 1014 from ER at 1815, report taken from David Lopez. Pt painful with transfer and reports muscle spasms in L leg and rates pain 6/10. Per report, Morphine given 60 minutes ago. Pt denies nausea and was offered dinner; patient refused and states she ate a large breakfast and lunch. Morphine ordered without a dose, pharmacy contacted and addressing issue with MD. Krishan early and draining to gravity.
[2016-06-19] MEDS: 0.9% Sodium Chloride 1,000 ML IV SCH (19:04)
[2016-06-19 21:00] VITALS: BP 162/85; PULSE 70; RESP 20; O2SAT 92
[2016-06-19] MEDS: Fluticasone-Salmeterol 100-50 Inhaler INHALATION SCH (21:04)
[2016-06-20] VITALS (18 sets, daily range): BP systolic 97–157; BP diastolic 58–98; PULSE 55–66; RESP 14–22; O2SAT 92–99
[2016-06-20] MEDS: Lactated Ringer's 1,000 ML IV SCH ×3 (03:44→23:44)
--- NOTE | 2016-06-20 04:28 | NUR ---
Pain Patient c/o pain in leg when coughing. Denies CP, and abdominal discomfort. SOB at baseline. NPO for surgery in the am. A&O, able to make needs known.
[2016-06-20 06:27] LABS: BASOPHILS % (AUTO) 0.2 % (0-3); EOSINOPHILS % (AUTO) 0.8 % (0-5); Mean Corpuscular Hemoglobin 28.1 pg (27.0-35.0); Mean Corpuscular Volume 89.5 fL (81-100); NEUTROPHILS % (AUTO) 64.8 % (40-74); Platelet Count 165 bil/L (150-400)
[2016-06-20] MEDS ORDERED: Potassium Chloride 20 mEq SR Tablet PO ONE (07:15)
[2016-06-20] MEDS: 0.9% Sodium Chloride 1,000 ML IV SCH ×4 (07:51→23:20)
[2016-06-20] MEDS ORDERED: 0.9% Sodium Chloride 250 ML IV ONE (08:15)
[2016-06-20] MEDS ORDERED: CeFAZolin Inj 2 GM in IV Premix 1 EACH IV ONE ×2 (08:25→09:00)
[2016-06-20] MEDS ORDERED: Tranexamic Acid Inj 1,000 MG in 0.9% Sodium Chloride 100 ML IV ONE ×2 (08:25→08:30)
[2016-06-20] MEDS ORDERED: ERGOCALCIFEROL 2000 UNIT PO SCH (08:30)
[2016-06-20] MEDS ORDERED: Lactated Ringer's 1,000 ML IV ONE (09:00)
--- NOTE | 2016-06-20 09:19 | CONS ---
[address] [address] CONSULTATION REPORT PATIENT: ALEXEY DE LEON : 1940 MR#: [id number] ADMIT: 06/19/2016 JOB ID: [id number] DATE OF SERVICE: 06/20/2016 CHIEF COMPLAINT: Left hip pain. HISTORY OF PRESENT ILLNESS: The patient is a 75-year-old female, who was recently admitted to the hospital with a COPD exacerbation and pancreatic cyst bleed who [facility] when she slipped out of bed well eating some ice cream and fell sustaining a left intertrochanteric hip fracture. She had onset of severe , sharp pain after the fall and was unable to walk. She normally walks with a walker and is oxygen-dependent on 2 L. PAST MEDICAL HISTORY: Significant for: 1. COPD. 2. Anemia. 3. Diabetes mellitus type 2. 4. Recent pancreatic cyst bleed. ALLERGIES: To PENICILLIN which causes a rash. PHYSICAL EXAMINATION: Blood pressure 132/63, pulse rate 66, oxygen saturation 96% on 2 L. Temperature 37.7. She is alert and cooperative, in some distress secondary to her left hip pain. She is able to move her toes and her foot is warm, pink, and well perfused with dorsalis pedis pulse +2. No calf pain or tenderness. She has pain with range of motion of the left hip radiating into the upper hip and groin. Her skin overlying the lateral hip is intact. IMAGING: X-rays demonstrate a left intertrochanteric hip fracture. ASSESSMENT: Left intertrochanteric hip fracture. PLAN: We discussed treatment options for this and she would like to proceed with a left hip open reduction and internal fixation. She has a low hemoglobin of 8.0 and it is unclear whether this is due to the hip fracture or perhaps her pancreatic cyst. In any event, we will give her 1 g TXA preoperative, 1 g intraop to help with hemostasis and likely plan for a blood transfusion today as well. Will hope for a spinal anesthetic as we discussed that she is at increased risk for perioperative complications with a general anesthetic, especially due to her lungs and COPD. We discussed the risks, benefits, and possible complications of surgery as well as the surgery itself and the postoperative course. The patient had good understanding. All questions were answered and she wished to proceed. I spent 25 minutes of [id number] time with the patient, greater than 50% of which was in counseling regarding management of her fracture and coordination of care. THERESE
[2016-06-20] MEDS ORDERED: Lidocaine 1%-Epi 1:100,000 20 mL Inj INFILTRATE ONE (09:40)
--- NOTE | 2016-06-20 09:55 | NUR ---
Social Work- Initial Assessment Attempt EMR reviewed. Pt is a 75 year old male admitted 06/19/16 for left hip fracture. SW attempted assessment with pt at bedside but was unable as pt is off floor in OR. SW will continue to follow. KERON Hart
[2016-06-20] MEDS ORDERED: Lactated Ringer's 500 ML IV PRN (10:35)
[2016-06-20] MEDS ORDERED: Dexamethasone 4 mg/mL Inj IVPUSH PRN (10:35)
[2016-06-20] MEDS ORDERED: HYDROmorphone 1 mg/mL Inj IVPUSH PRN (10:35)
[2016-06-20] MEDS ORDERED: fentaNYL-PF 50 mCg/mL 2 mL Inj IVPUSH PRN (10:35)
[2016-06-20] MEDS ORDERED: Atropine 0.4 mg/mL Inj IVPUSH PRN (10:35)
[2016-06-20] MEDS ORDERED: Phenylephrine 10,000 mCg/mL Inj IVPUSH PRN (10:35)
[2016-06-20] MEDS ORDERED: EPHEDrine Sulfate 50 mg/mL Inj IVPUSH PRN (10:35)
[2016-06-20] MEDS ORDERED: Lactated Ringer's 1,000 ML IV SCH (10:35)
[2016-06-20] MEDS ORDERED: Ondansetron 2 mg/mL 2 mL Inj IVPUSH PRN ×2 (10:35→10:50)
[2016-06-20] MEDS ORDERED: Polyethylene Glycol (PEG) 17 Gm Powder PO PRN (10:50)
[2016-06-20] MEDS ORDERED: HYDROmorphone 0.5 mg/0.5 mL iSecure Syringe IVPUSH PRN (10:50)
[2016-06-20] MEDS ORDERED: Magnesium Hydroxide 10 mL Oral Concentration PO PRN (10:50)
[2016-06-20] MEDS ORDERED: Acetaminophen IV 1,000 MG in IV Premix 1 EACH IV PRN (10:50)
--- NOTE | 2016-06-20 11:08 | PCM.PNMED ---
Subjective Date of Service Jun 20, 2016 Subjective Continues to have pain at left hip. 2g hemoglobin drop overnight noted. Abdomen soft no distention. Denies feeling dizziness before falling down. She describes her fall as mechanical. Will transfuse 2 units of PRBCs, she will get TXA in OR . Exam Vital Signs Vital Sign - Last Date Time Temp Pulse Resp B/P Pulse Ox O2 Delivery O2 Flow Rate FiO2 06/20/16 10:55 65 15 147/98 98 Simple Mask 10 06/20/16 10:45 36.8 Intake and Output 06/19/16 06/19/16 06/20/16 Cumulative From/Thru 15:00 23:00 07:00 06/19/16 18:53 - 06/20/16 06:23 Intake Total 912 ml 912 ml Output Total 1400 ml 1400 ml Balance -488 ml -488 ml Intake Oral 120 ml 120 ml IV Total 792 ml 792 ml Output Urine Total 1400 ml 1400 ml # Bowel Movements 0 0 Exam Constitutional : Frail, cachectic female, very pleasant, no acute distress Head / Eyes: Atraumatic, sclerae is anicteric ENT: Mucous membranes moist, no oral thrush Neck: Supple, trachea is midline. No JVD. Chest: Normal respiratory effort, no chest wall tenderness Cardiovascular: Regular rate & rhythm, no gallop, no murmur Abdomen / GI: Soft, nontender, nondistended. Normal bowel sounds all quadrants Upper Extremities: Left hip tenderness and swelling, pain with axial rotation Neurologic: Alert, Oriented. No sensory deficit Skin: Warm, Dry, No cyanosis, no rash, no ulcers Psychiatric: Mood/affect normal IVs and Medications Medications Reviewed: Medications were reviewed in detail Lab and Diagnostics Result Diagram: 06/20/16 0540 06/20/16 0540 X-Rays, CTs and MRIs He x-ray reviewed : Left intertrochanteric hip fracture. Checks x-ray reviewed : No acute intrapulmonary finding Assessment & Plan #. Left intertrochanteric hip fracture.acute -pain control:morphine and dialudid -DVT prophylaxis as per ortho, - to OR today #Anemia requiring transfusion, acute -Patient had recent intra-abdominal bleeding requiring transfusion. She came with a mechanical fall. She was noted to have 2 g hemoglobin drop overnight. Partly dilutional given IV fluids overnight. she also has some swelling at left hip. I do not think she has rebleeding to her abdomen. We will transfuse 2 PRBCs, TXA will be given in OR, We will consider imaging of abdomen if hemoglobin continues to drop or any abdominal distention #. Status post mechanical fall #. chronic hypercapnic and hypoxic respiratory failure due to COPD on 3L O2 Chronic medical problems 1. COPD 2. 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 Type II diabetes 4. GERD 5.HTN 6.Depression ,c/w zoloft GI Prophylaxis: Proton Pump Inhibitor VTE Prophylaxis: SCDs Resuscitation Status: DNR/DNI:Do Not Resuscitate/Intubate Fortunato Almodovar MD Jun 20, 2016 11:08
--- NOTE | 2016-06-20 11:43 | OP ---
[address] [address] OPERATIVE REPORT PATIENT: ALEXEY DE LEON : 1940 MR#: [id number] ADMIT: 06/19/2016 JOB ID: [id number] DATE OF SURGERY: 06/20/2016 PREOPERATIVE DIAGNOSIS(ES): Left intertrochanteric hip fracture. POSTOPERATIVE DIAGNOSIS(ES): Left intertrochanteric hip fracture. PROCEDURE: Left hip open reduction and internal fixation with dynamic hip screw. SURGEON: Ephraim Davila DO ANESTHESIA: Spinal. INDICATIONS: The patient is a 75-year-old female who was very recently discharged from the hospital with COPD exacerbation and anemia, who fell at her snf and sustained a left intertrochanteric hip fracture. We discussed treatment options for this and she wished to proceed with a left hip open reduction and internal fixation. We discussed the risks, benefits, and possible complications of surgery. All questions were answered and she wished to proceed. PROCEDURE IN DETAIL: The patient is brought to the operating room. She was given a preoperative antibiotic and dose of TXA preoperatively. She was then placed onto the fracture table and the fracture was reduced with a combination of traction and internal rotation. Confirmation of reduction was made with the C-arm. The hip was then sterilely prepped and draped. An incision was made over the lesser trochanter in line with the femur, however she had onset of pain with this. We held the procedure, gave her some lidocaine with epi as a local anesthetic, and then attempted to have her go to sleep with an LMA general anesthetic. However, her IV infiltrated and there was some difficulty placing a new IV. While we were waiting for the IV to be placed, we again tried to proceed with surgery, and at that point we were able to proceed as her spinal seemed to be working. The dissection was carried down through the iliotibial band and the vastus lateralis was released at the junction of the anterior 75%, posterior 25%. The muscle was elevated off of the femur and the 135 degree guide was used to get a starting point for the guidepin for the DHS. A bone hook was then used to help reduce the fracture further and the guidewire was introduced and advanced into the center-center position of the femoral head. The wire was measured, and subtracted 10, to get a 90 degree length for the lag screw. It was reamed and the 90 mm lag screw was inserted and had excellent purchase. I then elected to use a 2-hole dynamic hip screw plate, which was snugged down onto the bone. We then used the compression screw to tighten up the fracture and secured the 2-hole plate to the femur with two 0.35 cortex screws, both of which had excellent fixation. The compression screw seemed to have a tendency to want to rotate the plate, therefore I then removed it and confirmed final placement of the hardware with biplane fluoroscopy. The wound was irrigated and then closed with 0 Vicryl to close the vastus lateralis in a running fashion and then the iliotibial band was closed in a running fashion with 0 Vicryl. The subcu was closed with a 2-0 Vicryl and the skin was closed with interrupted jemma. Sterile dressings were applied. The patient tolerated the procedure well. Blood loss was 100 mL. The patient was also given a second gram of tranexamic acid given her history of recent bleeding and anemia. The patient was then transferred to the recover room in good condition. POSTOPERATIVE PROTOCOL: Will have the patient weightbear as tolerated with a walker. Will plan to use aspirin 325 daily for DVT prophylaxis unless the hospitalist would like to do something else. I am concerned about her bleeding and we could even consider going down to 162 mg of aspirin daily for six weeks as long as it is tolerated. Will plan to use some IV Tylenol for pain and have her follow up in the clinic for staple removal in two weeks and with myself with x-rays at six weeks postop.
--- NOTE | 2016-06-20 12:31 | PCM.HPANE ---
Patient Data Surgeon Admitting Provider:Ryan Mccabe MD Attending Provider:Ryan Mccabe MD Primary Care Physician:Todd Garcia DO Other Provider: Reason for Visit Left Hip Fx Ht/WT & BMI Height (Feet): 5 Height (Inches): 7.00 Weight (Kilograms): 47.000 Body Mass Index 16.26 Allergies Coded Allergies: Penicillins (Verified Allergy, Intermediate, 06/13/16) Past Anesthesia History Anesthesia History: Denies:: Anesthesia Reactions Diabetes History Hx Diabetes?: Yes MRSA MRSA: No Medications Active Scripts Prednisone (PredniSONE)20 Mg [id number] Mg PO DAILY #7 TABLET Ref 0 Prov:Jorge Alvarez MD 06/18/16 Reported Medications Sertraline HCl (Sertraline)25 Mg Xluerk95 Mg PO DAILY 30 Days Ref 0 06/14/16 Metformin 500 Mg Engavg976 Mg PO DAILY Ref 0 06/14/16 Fluticasone Propionate 50 Mcg/Actuation [place].susp1 [place] NASAL DAILY 06/14/16 Ferrous Sulfate (Iron)325 Mg Capsule.er325 Mg PO DAILY 06/14/16 Ergocalciferol (Vitamin D2) (Vitamin D2)2,000 Unit Tablet2,000 Unit PO DAILY 06/14/16 Diltiazem 30 Mg Vfjvvx68 Mg PO TID 06/14/16 Albuterol Neb Soln 0.63 Mg/3 Ml Vial.neb0.63 Mg INHALATION QID 06/14/16 Acetaminophen 325 Mg Hissek340 Mg PO Q4H PRN For Pain Ref 0 06/14/16 Albuterol HFA (Proair HFA)8.5 Gm Hfa.aer.ad2 Puffs INHALATION Q4H SHORTNESS OF BREATH #1 INHALER 06/14/16 Zolpidem (Ambien)5 Mg Tablet5 Mg PO HS PRN For Insomnia Ref 0 06/14/16 Fexofenadine 180 Mg Ruxifz111 Mg PO DAILY DAILY NEEDED FOR ALLERGIES 06/14/16 Albuterol Neb Soln 0.63 Mg/3 Ml Vial.neb0.63 Mg INHALATION Q4H PRN For Shortness of Breath 06/14/16 Ranitidine 150 Mg Gzmpsiy053 Mg PO BID Ref 0 06/14/16 Beclomethasone Dipropionate (Qvar)8.7 Gm Aer.w.adap1 Puff INHALATION BID #8.7 GM 06/14/16 Propranolol HCl 80 Mg Psrctz94 Mg PO BID 06/14/16 Multivitamin (Once Daily)1 Each Tablet1 Each PO DAILY 06/14/16 Tiotropium [place] (Spiriva)18 Mcg Cap.w.dev18 Mcg IH DAILY #1 PKG Ref 0 06/14/16 Docusate Sodium (Colace)100 Mg Zbgtgju305 Mg PO DAILY Ref 0 06/14/16 Calcium Carbonate (Tums)500 Mg Tab.spua140 Mg PO DAILYWD 30 Days 06/14/16 Aspirin 81 Mg Ztlqbf47 Mg PO DAILY Ref 0 06/14/16 History History of ENT Problems?: Yes HEENT History: Positive for:: Sinus Problem (allergies) Denture Type: Full- Upper Full- Lower Hx of Heart Problems?: Yes Cardiovascular History: Positive for:: Hypertension Irregular Heartbeat (Hx Afib) Denies:: Cardiac Surgery Chest Pain Congestive Heart Failure Edema Heart Murmur Pacemaker Thrombophlebitis Hx of Respiratory Problem?: Yes Respiratory History: Positive for:: COPD Dyspnea Pneumonia Denies:: Asthma Chest Surgery Emphysema Hemoptysis Tuberculosis Hx Neurologic Problems?: No Hx of GI Problems?: Yes Gastrointestinal History: Positive for:: Gastroesphageal Reflux Heartburn Denies:: Diverticulitis Gastrointestinal Bleeding Hepatitis Hiatal Hernia Rectal Bleeding Hx of Problems?: No Genitourinary History: Positive for:: Urinary Tract Infection Female Hx: Denies:: Currently Endometriosis Pelvic Inflammatory Problems with Breasts? Hx Musculoskeletal Problems?: Yes Musculoskeletal History: Positive for:: Musculoskeletal Trauma (GLF 06/19/16 resulting in hip fracture) Denies:: Back Injury Hx of Psycho/Social Problems?: No Psycho Social History: Positive for:: Hx Depression Hx Any Other Health Problems?: Yes Other History: Positive for:: Hospitalization (Pneumonia/COPD) Denies:: Cancer Thyroid Disease History Blood Transfusions: Positive for:: Accept Blood Products? Denies:: Blood Transfusions Hx Diabetes: Yes Hx Alcohol Use: NoHx Substance Use: No Smoking Status: Former Smoker Have You Smoked inLast 12 mo: Yes (Quit march) Stop/Bang Treated for Sleep Apnea?: No Do You Have a CPAP Machine?: No S-Snoring: Do You Snore Loudly: No T-Tired: feel tired, fatigued: Yes O-Obsered: Observed not breath: No P-Blood Pressure: treated: Yes B- Body Mass Index > 35 kg/m2: No A- Age over 50: Yes N- Neck Large Circumference: No G- Gender Male: No ALLY Total Score: 2 Risk Assessment Category Category 1A: Patient has history of documented sleep apnea, and HAS NOT received any narcotic, sedative or anesthesia administration during this stay. Category 1B: Patient has history of documented sleep apnea, and HAS received any narcotic , sedative or anesthesia administration during this stay Category 2: Patient has SUSPECTED Obstructive Sleep Apnea, and HAS received any narcotic , sedative or anesthesia administration during this stay. Category 3: Patient has SUSPECTED Obstructive Sleep Apnea and HAS NOT received narcotic, sedative or anesthesia administration during this stay. Category 4: Outpatient in Procedural Areas with known sleep apnea or who screen positive for High Risk via the STOP/BANG questionnaire. Exam Exam Vital Signs Vital Signs Date Time Temp Pulse Resp B/P Pulse Ox O2 Delivery O2 Flow Rate FiO2 06/20/16 05:15 36.7 66 16 132/63 96 Nasal Cannula 2.00 06/20/16 04:24 Supplement Oxygen 06/20/16 01:03 36.8 58 18 157/79 97 Nasal Cannula 2.00 General Appearance: Alert, Oriented X3, Cooperative, Moderate Distress (left hip pain) HEENT/AIRWAY: MP 2, Neck Movement (FROM), Mouth Opening (3 FBMO, edentulous) Lungs: Clear to Auscultation, Normal Air Movement Heart: Exam Unremarkable, Regular Rate/Rhythm, No Murmurs/Rubs/Gallops Meds/Labs/Diagnostics Admission Meds Current Medications Sodium Chloride 1,000 ml @ 100 mls/hr Q10H IV Last administered on 06/19/16 17:35; Start 06/19/16 at 16:40; Stop 06/19/16 at 18:00; Status DC Sodium Chloride (Normal Saline) 1,000 ml @ 75 mls/hr [id number] IV Last administered on 06/20/16 07:51; Start 06/19/16 at 17:45 Salmeterol Xinafoate/ Fluticasone (Advair 100-50) 1 puff BID INHALATION Last administered on 06/19/16 21:04; Start 06/19/16 at 20:30 Diltiazem HCl (Cardizem) 30 mg TID PO Last administered on 06/19/16 20:40; Start 06/19/16 at 20:30 Propranolol HCl (Inderal) 80 mg BID PO Last administered on 06/19/16 21:04; Start 06/19/16 at 20:30 Famotidine (Pepcid) 20 mg BID PO Last administered on 06/19/16 21:04; Start at 20:30 Labs Test 06/19/16 16:51 06/20/16 05:40 Prothrombin Time 10.3sec (8.1-12.5) Prothromb Time International Ratio 0.96ratio Hold [place] Top Tube Received (Received) White Blood Count 6.0th/mm3 (3.8-10.1) Red Blood Count 2.85mil/mm3 (3.90-5.20) Hemoglobin 8.0g/dL (12.0-15.6) Hematocrit 25.5% (35.0-46.0) Mean Corpuscular Volume 89.5fL (81-100) Mean Corpuscular Hemoglobin 28.1pg (27.0-35.0) Mean Corpuscular Hemoglobin Concent 31.4% (32.0-37.0) Red Cell Distribution Width 15.0% (12.3-15.4) Platelet Count 165bil/L (150-400) Neutrophils (%) (Auto) 64.8% (40-74) Lymphocytes (%) (Auto) 22.7% (14-46) Monocytes (%) (Auto) 10.0% (4-12) Eosinophils (%) (Auto) 0.8% (0-5) Basophils (%) (Auto) 0.2% (0-3) Sodium Level 138mEq/L (134-144) Potassium Level 3.4mEq/L (3.5-5.2) Chloride Level 102mEq/L (97-108) Carbon Dioxide Level 26mmol/L (18-29) Blood Urea Nitrogen 16mg/dL (8-27) Creatinine 0.46mg/dL (0.57-1.00) Estimat Glomerular Filtration Rate 189mL/min (>59) Glucose Level 105mg/dL (60-99) Calcium Level 7.6mg/dL (8.5-10.1) Total Bilirubin 0.2mg/dL (0.0-1.2) Aspartate Amino Transf (AST/SGOT) 13U/L (0-50) Alanine Aminotransferase (ALT/SGPT) 16U/L (0-32) Alkaline Phosphatase 52U/L (25-165) Total Protein 5.1g/dL (6.4-8.4) Albumin 2.5g/dL (3.4-5.0) Plan Impression Patient chart reviewed, patient interviewed and anesthestic plan with risks, benefits, and alternatives discussed, and informed consent obtained. NPO Status: > 8 hrs ASA Physical Status: ASA3 Severe Disease (COPD/ h/o A fib) Anesthetic Plan: SAB Bene/Risks/Altern/Consents: Yes HP Complete Prior to Induction: Yes Ephraim Ferrer MD Jun 20, 2016 08:42
--- NOTE | 2016-06-20 12:32 | PCM.ANEP1 ---
Post Anesthesia Phase 1 PACU Phase 1 Assessment Vital Signs Vital Signs Date Time Temp Pulse Resp B/P Pulse Ox O2 Delivery O2 Flow Rate FiO2 06/20/16 11:30 57 15 121/68 94 OxyMask 5 06/20/16 11:15 64 17 141/81 93 OxyMask 5 06/20/16 11:04 14 98 06/20/16 11:00 61 14 135/65 92 OxyMask 5 06/20/16 10:55 65 15 147/98 98 Simple Mask 10 06/20/16 10:50 59 16 141/66 99 Simple Mask 10 06/20/16 10:45 36.8 55 17 106/68 99 Simple Mask 10 06/20/16 05:15 36.7 66 16 132/63 96 Nasal Cannula 2.00 Anesthetic Administered: SAB Level of Alertness: Awake, talking MATTHEW's with Equal Strength: No (SAB still working) Pain: Yes (RN awares) Pain Scale Score: 5 Nausea or Vomiting: No Oxygen Delivery: OxyMask Lungs: Clear to Auscultation, Normal Air Movement Dermatome Level: T12 (Symphysis Pubis) Ephraim Ferrer MD Jun 20, 2016 12:32
--- NOTE | 2016-06-20 12:32 | PCM.ANEP2 ---
Post Anesthesia Evaluation ASA/CMS Post Anesthesia VS in Patient's Normal Range?: Yes Resp Stable; Airway Patent?: Yes CV Function & Hydration Stable: Yes Mental Status Recovered?: Yes Pain control Satisfactory?: Yes N/V Control Satisfactory?: Yes Ephraim Ferrer MD Jun 20, 2016 12:32
--- NOTE | 2016-06-20 13:00 | NUR ---
NUTRITION ASSESSMENT: Assess: 75 YO F recently admitted to the hospital with a COPD exacerbation and pancreatic cyst bleed who was at the long term facility when she slipped out of bed and fell, sustaining a left intertrochanteric hip fracture. She had onset of severe, sharp pain after the fall and was unable to walk. She normally walks with a walker and is oxygen-dependent on 2 L. She is status post left hip open reduction and internal fixation. PMHX: COPD, depression, GERD, anemia, type 2 diabetes, recent pancreatic cyst with GI bleed. DIET: Heart healthy consistent carb. PO intake not yet recorded. LABS: K+ 3.4, Cr 0.46, Glu 105, Ca 7.6, Alb 2.5. MEDICATIONS: Bowel regimen. GI: No BM reported. SKIN: No issues noted. WEIGHT: 47.0 kg, BMI 16.0 kg/m2 = underweight. IBW: 61.4 kg. ESTIMATED NEEDS: WEIGHT GAIN Calories: 8063-5065 kcal/day (30-35 kcal/kg BW) Protein: 74-92 g/day (1.2-1.5 g/kg IBW) NUTRITION DIAGNOSIS: 1) Inadequate oral intake related to decreased ability to consume sufficient energy as evidenced by underweight BMI 16.0. INTERVENTION: 1) Will add nutrition supplements to encourage adequate nutrition. MONITOR/EVALUATE: PO intake, POC, labs, diet tolerance, GI/nutrition status. Follow per moderate nutrition risk guidelines.
[2016-06-20] MEDS ORDERED: Furosemide 10 mg/mL 2 mL Inj IVPUSH ONE (14:00)
[2016-06-20] MEDS: Tiotropium 18mcg/Cap 5 Capsule Inhaler Kit INHALATION SCH (14:14)
[2016-06-20] MEDS: Fluticasone-Salmeterol 100-50 Inhaler INHALATION SCH ×2 (14:17→21:10)
[2016-06-20] MEDS: CeFAZolin Inj 2 GM in IV Premix 1 EACH IV SCH (17:14)
[2016-06-20] MEDS: predniSONE 20 mg Tablet PO SCH (17:22)
[2016-06-20] MEDS: HYDROcodone-APAP 5-325 mg Tablet PO PRN ×2 (17:23→21:17)
--- NOTE | 2016-06-20 18:43 | NUR ---
Surgery/post op/blood Patient went to surgery this am for hip repair. Patient received back to room 1014 Patient was alert but with some course breath sounds noted and desaturation with oxygen levels. Patient on 6 liters oxy mask upon return then switched to nasal canula per patients request. called about lung sounds and Lasix 20 mg ordered and given. Patient at this time is now on 3l NC with o2 levels from 88-93 . Patient now receiving the 1st unit of rbc's ordered for transfusion.
[2016-06-20] MEDS: Senna-Docusate 8.6-50 mg Tablet PO SCH (21:13)
[2016-06-21] VITALS (10 sets, daily range): BP systolic 107–132; BP diastolic 58–71; PULSE 55–64; RESP 16–20; O2SAT 92–97
[2016-06-21] MEDS: HYDROcodone-APAP 5-325 mg Tablet PO PRN ×5 (03:46→20:46)
[2016-06-21] MEDS: CeFAZolin Inj 2 GM in IV Premix 1 EACH IV SCH (03:46)
[2016-06-21 05:09] LABS: BASOPHILS % (AUTO) 0.1 % (0-3); EOSINOPHILS % (AUTO) 0 % (0-5); MONOCYTES % (AUTO) 7.9 % (4-12); Mean Corpuscular Hemoglobin 28.2 pg (27.0-35.0); Mean Corpuscular Volume 86.1 fL (81-100); NEUTROPHILS % (AUTO) 83.6 % (40-74); Platelet Count 174 bil/L (150-400)
--- NOTE | 2016-06-21 06:17 | NUR ---
Pain/Blood transfusion Completed PRBC 1 of 2 and initiated and completed 2 of 2 without adverse reaction. IV abx this shift as well as NS at 75 ml/h as tolerated by respiratory system. Cough noted and encouraged deep breathing, pt states no SOB but does have occasions where SaO2 is less than 88. On 3L nc. Given PO pain meds and morphine needed for breakthrough pain. Pain especially after repositioning. Bulky dressing on hip intact. CSM intact. Allen wrap removed from R arm and no further drainage from IV sites, bruises noted. Care continues
[2016-06-21] MEDS ORDERED: Albuterol-Ipratropium 3 mL Inhalation Solution NEB PRN (07:30)
[2016-06-21] MEDS ORDERED: Furosemide 10 mg/mL 2 mL Inj IVPUSH ONE (07:30)
[2016-06-21] MEDS: predniSONE 20 mg Tablet PO SCH (09:14)
[2016-06-21] MEDS: Senna-Docusate 8.6-50 mg Tablet PO SCH ×2 (09:16→20:48)
[2016-06-21] MEDS: Tiotropium 18mcg/Cap 5 Capsule Inhaler Kit INHALATION SCH (09:21)
[2016-06-21] MEDS: Fluticasone-Salmeterol 100-50 Inhaler INHALATION SCH ×2 (09:21→23:29)
[2016-06-21] MEDS: Lactated Ringer's 1,000 ML IV SCH ×2 (09:44→19:44)
[2016-06-21] MEDS ORDERED: Glucose 40% Oral Gel 15 Gm Tube PO PRN (09:55)
[2016-06-21] MEDS ORDERED: Albuterol 2.5 mg/3 mL Inhalation Solution NEB PRN (10:25)
--- NOTE | 2016-06-21 11:22 | PCM.PNMED ---
Subjective Date of Service Jun 21, 2016 Subjective Underwent left hip ORIF. Transfused 2 units of PRBC , responded appropriately. Pain controlled Exam Vital Signs Vital Sign - Last Date Time Temp Pulse Resp B/P Pulse Ox O2 Delivery O2 Flow Rate FiO2 06/21/16 09:13 36.7 62 20 124/71 96 Nasal Cannula 3.00 Intake and Output 06/20/16 06/20/16 06/21/16 Cumulative From/Thru 15:00 23:00 07:00 06/19/16 18:53 - 06/21/16 03:02 Intake Total 870 ml 1515 ml 409 ml 3706 ml Output Total 650 ml 1500 ml 3550 ml Balance 220 ml 15 ml 409 ml 156 ml Intake Oral 636 ml 756 ml IV Total 870 ml 579 ml 109 ml 2350 ml Packed Cells 300 ml 300 ml 600 ml Output Urine Total 550 ml 1500 ml 3450 ml Estimated Blood Loss 100 ml 100 ml # Bowel Movements 0 0 Exam Constitutional : Frail, cachectic female, very pleasant, no acute distress Head / Eyes: Atraumatic, sclerae is anicteric ENT: Mucous membranes moist, no oral thrush Neck: Supple, trachea is midline. No JVD. Chest: Normal respiratory effort, no chest wall tenderness Cardiovascular: Regular rate & rhythm, no gallop, no murmur Abdomen / GI: Soft, nontender, nondistended. Normal bowel sounds all quadrants Extremities: Left hip tenderness and swelling, cleanly dressed surgical site at left hip. Neurologic: Alert, Oriented. No sensory deficit Skin: Warm, Dry, No cyanosis, no rash, no ulcers Psychiatric: Mood/affect normal IVs and Medications Medications Reviewed: Medications were reviewed in detail Lab and Diagnostics Result Diagram: 06/21/16 0500 06/21/16 0500 X-Rays, CTs and MRIs He x-ray reviewed : Left intertrochanteric hip fracture. Checks x-ray reviewed : No acute intrapulmonary finding Additional Diagnostics DATE OF SURGERY: 06/20/2016 PREOPERATIVE DIAGNOSIS(ES): Left intertrochanteric hip fracture. POSTOPERATIVE DIAGNOSIS(ES): Left intertrochanteric hip fracture. PROCEDURE: Left hip open reduction and internal fixation with dynamic hip screw. SURGEON: Ephraim Davila, ANESTHESIA: Spinal. Assessment & Plan #. Left intertrochanteric hip fracture.acute -pain control:morphine and dialudid -DVT prophylaxis as per ortho, - to OR today #Anemia requiring transfusion, acute -Patient had recent intra-abdominal bleeding requiring transfusion. She came with a mechanical fall. She was noted to have 2 g hemoglobin drop on 06/20. Partly dilutional given IV fluids. she also has some swelling at left hip. transfused 2 PRBCs, TXA given in OR, hemoglobin responded appropriately. Very unlikely she has rebleeding intraperitoneal. We will consider imaging of abdomen if hemoglobin continues to drop or any abdominal distention #. Status post mechanical fall #. chronic hypercapnic and hypoxic respiratory failure due to COPD on 3L O2 -continue Advaitr and Spiriva -She is on prednisone 20 mg by mouth daily. She states she has been on and off prednisone for COPD exacerbations. will start to taper prednisone now. Chronic medical problems 1. COPD 2. 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 Type II diabetes -Sliding-scale 4. GERD 5.HTN 6.Depression ,c/w zoloft GI Prophylaxis: Proton Pump Inhibitor VTE Prophylaxis: SCDs VTE Mechanical Devices: Intermittant Pneumatic CD Resuscitation Status: DNR/DNI:Do Not Resuscitate/Intubate Fortunato Almodovar MD Jun 21, 2016 11:22
[2016-06-21] MEDS: 0.9% Sodium Chloride 1,000 ML IV SCH (12:48)
[2016-06-21] MEDS: Insulin LISPRO 300 Unit/3 mL Inj SUBQ SCH ×3 (13:00→22:00)
--- NOTE | 2016-06-21 13:07 | PROG NOTE ---
[address] [address] PROGRESS NOTE PATIENT: ALEXEY DE LEON : 1940 MR#: [id number] ADMIT: 06/19/2016 JOB ID: [id number] DATE: SUBJECTIVE: Patient seen and examined. Doing okay. She states her pain is well controlled. No chest pain or shortness of breath. OBJECTIVE: Blood pressure 124/71, pulse rate 62, respirations 20, temperature 36.7. She is alert and cooperative, in no acute distress. OBJECTIVE: Left hip dressing clean, dry, and intact. She is able to move her toes. She has no calf pain or tenderness. Her dorsalis pedis pulse is +2. Laboratory evaluation: Hemoglobin 11.2. ASSESSMENT: Status post left hip dynamic hip screw. PLAN: Will have the patient begin working with physical therapy. She may weightbear to tolerance with a walker. Will use aspirin 325 daily for DVT prophylaxis as there is some concern about bleeding, and anticipate that she will need [facility] in another couple of days. Follow up in the clinic in two weeks for recheck with staple removal and in six weeks with myself with a recheck with x-rays.
[2016-06-21 13:15] LABS: APPEARANCE,URINE CLEAR (CLEAR,HAZY); COLOR,URINE STRAW (YELLOW); OCCULT BLOOD,URINE NEGATIVE (NEGATIVE); UROBILINOGEN,URINE NORMAL (NORMAL)
--- NOTE | 2016-06-21 13:30 | NUR ---
KENDAL signed. Salome Mckeon ACOUSTICAL ENGINEER
[2016-06-21] MEDS ORDERED: Lactulose 20 Gm/30 mL 30 mL Syrup TUBE ONE (14:05)
--- NOTE | 2016-06-21 14:27 | NUR ---
Social Work- Initial Assessment Data: See Initial Assessment. SW attempted initial assessment yesterday, pt was in OR and later asleep and unable to be awoken. Pt is on day 2 of hospitalization for left hip fracture per H&P. Pt's insurance is [employer]. PCP is Todd Garcia DO. LOE met with pt at bedside regarding discharge plan, SW role explained. Pt alert and oriented x3. Pt resides at [facility] pvt pay where she receives assistance with her ADLs. Pt uses a walker and does not drive. Pt has no HH history. Pt has no LTC or VA benefits. SW spoke with pt regarding DPOA, encouraged pt to bring copy to the hospital. PT recommending SNF at last evaluation. SW will pursue authorization prior to discharge. OLE provided phone number on whiteboard. Paperwork in chart. Pt to discharge back to [facility] when medically stable. OLE will continue to follow. Assessment: Pt who resides at [facility] and who would benefit from SNF rehab. Plan: PT recommending SNF. Pt to discharge back to [facility] when medically stable. Paperwork in chart. SW will continue to follow. KERON Hart Addendum: 06/21/16 at 1431 by JOSE HAAS Amended: Links added.
[2016-06-21] MEDS: diphenhydrAMINE 25 mg Capsule PO PRN (23:28)
--- NOTE | 2016-06-22 | NUR ---
c/o itching all over. no diffuse rash seen. May be due to [place]. Benadryl given and patient states itching decreased.
[2016-06-22] MEDS: 0.9% Sodium Chloride 1,000 ML IV SCH ×2 (00:20→12:50)
[2016-06-22] MEDS: HYDROcodone-APAP 5-325 mg Tablet PO PRN ×3 (00:22→11:14)
[2016-06-22] MEDS: Lactated Ringer's 1,000 ML IV SCH (02:10)
--- NOTE | 2016-06-22 02:51 | NUR ---
Bradycardic HR 55 Night time Propanolol dose held as per Hospitalist order.
--- NOTE | 2016-06-22 02:53 | NUR ---
GI Reports constipation. No BM following Lactalose given yesterday. Evening suppository given without BM. Denies nausea, PO fluids encouraged. Addendum: 06/22/16 at 0617 by JAYLENE TAVAREZ RN morning BM - 4 small hard pellets followed by small liq stool.
[2016-06-22 05:45] VITALS: BP 162/84; PULSE 60; RESP 19; O2SAT 94
[2016-06-22 07:42] LABS: BASOPHILS % (AUTO) 0.2 % (0-3); EOSINOPHILS % (AUTO) 1.3 % (0-5); MONOCYTES % (AUTO) 9.9 % (4-12); Mean Corpuscular Hemoglobin 28.6 pg (27.0-35.0); Mean Corpuscular Volume 86.5 fL (81-100); NEUTROPHILS % (AUTO) 69.1 % (40-74); Platelet Count 162 bil/L (150-400)
[2016-06-22] MEDS: Insulin LISPRO 300 Unit/3 mL Inj SUBQ SCH ×2 (08:00→11:59)
[2016-06-22] MEDS: Senna-Docusate 8.6-50 mg Tablet PO SCH (08:23)
[2016-06-22] MEDS: Fluticasone-Salmeterol 100-50 Inhaler INHALATION SCH (08:24)
[2016-06-22] MEDS: Tiotropium 18mcg/Cap 5 Capsule Inhaler Kit INHALATION SCH (08:24)
[2016-06-22] MEDS ORDERED: predniSONE 20 mg Tablet PO SCH (08:30)
--- NOTE | 2016-06-22 09:04 | PCM.PNORTH ---
Subjective Date of Service: Jun 22, 2016 Visit Information: Reason for Visit Left Hip Fx Surgery/Surgery Date left hip ORIF with [facility] 06/20/2016 Post-Op Day # 2 Date of Admission: Jun 19, 2016 at 17:11 Hospital Day # Subjective Patient reports minimal incisional pain. She got out of bed twice yesterday. Postop General: No Complaints, No Shortness of Breath, No Chest Pain, Good Appetite Pain Management: PO Objective Exam Objective Patient is seen laying in bed Vital Signs and I/O Vital Sign - Last Date Time Temp Pulse Resp B/P Pulse Ox O2 Delivery O2 Flow Rate FiO2 06/22/16 08:35 Supplement Oxygen 06/22/16 05:45 37.0 60 19 162/84 94 2.00 Intake and Output 06/21/16 06/21/16 06/22/16 Cumulative From/Thru 15:00 23:00 07:00 06/19/16 18:53 - 06/22/16 06:00 Intake Total 1119 ml 1029 ml 525 ml 6379 ml Output Total 1150 ml 1500 ml 6200 ml Balance -31 ml -471 ml 525 ml 179 ml Intake Oral 436 ml 596 ml 1788 ml IV Total 683 ml 433 ml 525 ml 3991 ml Packed Cells 600 ml Output Urine Total 1150 ml 1500 ml 6100 ml Estimated Blood Loss 100 ml # Bowel Movements 0 0 0 Lab & Micro Results Laboratory Tests Test 06/22/16 07:36 White Blood Count 8.7th/mm3 (3.8-10.1) Red Blood Count 3.71mil/mm3 (3.90-5.20) Hemoglobin 10.6g/dL (12.0-15.6) Hematocrit 32.1% (35.0-46.0) Mean Corpuscular Volume 86.5fL (81-100) Mean Corpuscular Hemoglobin 28.6pg (27.0-35.0) Mean Corpuscular Hemoglobin Concent 33.0% (32.0-37.0) Red Cell Distribution Width 15.7% (12.3-15.4) Platelet Count 162bil/L (150-400) Neutrophils (%) (Auto) 69.1% (40-74) Lymphocytes (%) (Auto) 17.4% (14-46) Monocytes (%) (Auto) 9.9% (4-12) Eosinophils (%) (Auto) 1.3% (0-5) Basophils (%) (Auto) 0.2% (0-3) Sodium Level 132mEq/L (134-144) Potassium Level 3.8mEq/L (3.5-5.2) Chloride Level 95mEq/L (97-108) Carbon Dioxide Level 26mmol/L (18-29) Blood Urea Nitrogen 14mg/dL (8-27) Creatinine 0.47mg/dL (0.57-1.00) Estimat Glomerular Filtration Rate 184mL/min (>59) Glucose Level 107mg/dL (60-99) Calcium Level 8.0mg/dL (8.5-10.1) Total Bilirubin 0.3mg/dL (0.0-1.2) Aspartate Amino Transf (AST/SGOT) 20U/L (0-50) Alanine Aminotransferase (ALT/SGPT) 6U/L (0-32) Alkaline Phosphatase 60U/L (25-165) Total Protein 5.2g/dL (6.4-8.4) Albumin 2.5g/dL (3.4-5.0) Result Diagram: 06/22/16 0736 06/22/16 0736 General Appearance: Alert, Oriented X3, Cooperative, No Acute Distress Extremities: Distal Pulses Palpable, No Compartment Syndrom Noted, Thigh & Calf Soft/Nontender, Tenderness/Swelling Noted (at fracture site) SURGICAL WOUND : Wound Location/Description lateral left hip: Wound is clean, dry and intact. Fatmata are intact. Wound is cleansed with hydrogen peroxide and new [place] dressing applied. There is mild ecchymosis posterior to the incision. There is mild swelling present. Incision General Appearance: [place], Well Approximated Dressing & Drainage Status: Changed Activity: Ambulate with PT Catheters: None Assessment & Plan Impression Status post left hip ORIF with [facility] Problems: Plan Weightbearing: Weightbearing as tolerated with walker DVT prophylaxis: aspirin 325 mg once a day 6 weeks Physical therapy for transfers, progressive ambulation, therapeutic exercise Wound care: Dressing change today by PA to [place] dressing. Nursing to change prn if saturated Discharge plan: Discharge to [facility] today or tomorrow when medically stable. Follow-up plan: In 2 weeks at [facility] with PA for wound check and at [address] Picco with x-rays Pain Management: Morphine IV, Tylenol PO VTE Prophylaxis: SCDs, Other (aspirin) Resuscitation Status: DNR/DNI:Do Not Resuscitate/Intubate Rosemarie Hughes PA-C Jun 22, 2016 09:04
--- NOTE | 2016-06-22 10:53 | NUR ---
Called and spoke with Maryjane Canada CM at [facility] and she is reviewing patient for transfer to [facility] today. Patient comes from [facility] and plan is to return. Updated URGENT CARE PHYSICIAN Addendum: 06/22/16 at 1106 by JAC GOLDMAN CM Maryjane approved patient today for transfer to [facility]
--- NOTE | 2016-06-22 11:44 | PCM.DIMED ---
Discharge Instructions Date of Service Jun 22, 2016 Dates of Hospitalization Jun 19, 2016 at 17:11 Discharge Diagnosis Discharge Diagnosis #. Left intertrochanteric hip fracture s/p Left hip open reduction and internal fixation with dynamic hip screw..acute # Anemia requiring transfusion, acute #. Status post mechanical fall #. chronic hypercapnic and hypoxic respiratory failure due to COPD on 3L O2 Chronic medical problems 1. COPD 2. 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 Type II diabetes 4. GERD 5.HTN 6.Depression Diet Low fat, Low Sodium, Heart Healthy Activity Other (continue physical therapy at [facility].) Call your provider Fever or Chills, Shortness of breath, Bleeding, Chest pain, Vomitting, Excessive diarrhea, Weakness (unilateral) Patient Instructions You were hospitalized due to left hip fracture and underwent successful left hip open reduction and internal fixation. You also had anemia requiring transfusion and transfuse 2 units of blood. Hemoglobin responded appropriately. Unlikely you have bleeding into your abdomen again. Anemia likely due to fracture. Orthopedics recommendations Weightbearing: Weightbearing as tolerated with walker DVT prophylaxis: aspirin 325 mg once a day 6 weeks Physical therapy for transfers, progressive ambulation, therapeutic exercise Wound care: Dressing change today by PA to [place] dressing. Nursing to change prn if saturated Follow-up plan: In 2 weeks at [facility] with PA for wound check and at [address] Davila with x-rays Follow-up plan Follow-up with PCP 1 week after discharge from [facility]. Please follow-up with orthopedics as instructed above. Follow-up Provider: Todd Garcia DO Follow-up with PCP in: 1 week Provider: Ephraim Davila DO Follow-up in: 6 weeks Follow-up with Mid-level in: 2 weeks ([facility] ) Fortunato Almodovar MD Jun 22, 2016 11:44
[2016-06-22] MEDS ORDERED: HYDR-4003 PO (11:47)
[2016-06-22] MEDS ORDERED: Aspirin-Expunged Drug, Do Not Renew! PO (11:47)
[2016-06-22] MEDS ORDERED: PRE20 PO (11:47)
--- NOTE | 2016-06-22 11:48 | NUR ---
Social Work: Discharge Data & Assessment: SW spoke with patient's daughter Tabitha Molina and notified her that [facility] approved patient for SNF and the patient would discharge to [facility] today via cabulance. Patient will be picked up at 2 p.m. SW will continued to follow. Plan: Patient will discharge to [facility] via [facility]. Libby Black LMSW, YISSEL
[2016-06-22] MEDS: diphenhydrAMINE 25 mg Capsule PO PRN (13:33)
--- NOTE | 2016-06-22 13:40 | NUR ---
faxed discharge paperwork to Maribel Pope
--- NOTE | 2016-06-22 13:44 | PCM.DC.MED ---
Discharge Summary Date of Service Jun 22, 2016 Dates of Hospitalization Date of Hospital Admission Jun 19, 2016 at 17:11 Date of Discharge: Jun 22, 2016 Providers: Admitting Physician: Ryan Mccabe MD Primary Care Physician: Todd Garcia DO Attending Physician: Ryan Mccabe MD Diagnosis at Time of Discharge Diagnosis at Time of Discharge #. Left intertrochanteric hip fracture s/p Left hip open reduction and internal fixation with dynamic hip screw..acute # Anemia requiring transfusion, acute #. Status post mechanical fall #. chronic hypercapnic and hypoxic respiratory failure due to COPD on 3L O2 Chronic medical problems 1. COPD 2. 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 Type II diabetes 4. GERD 5.HTN 6.Depression Consultations Orthopedics Dr. Ephraim Davila Procedures XRay, CTs & MRIs x-ray reviewed : Left intertrochanteric hip fracture. Checks x-ray reviewed : No acute intrapulmonary finding Other Diagnostics DATE OF SURGERY: 06/20/2016 PREOPERATIVE DIAGNOSIS(ES): Left intertrochanteric hip fracture. POSTOPERATIVE DIAGNOSIS(ES): Left intertrochanteric hip fracture. PROCEDURE: Left hip open reduction and internal fixation with dynamic hip screw. SURGEON: Ephraim Davila DO ANESTHESIA: Spinal. Brief History per HPI by Dr Mccabe on 06/19/16 This is a 75 is female with past medical history chronic respiratory failure, [facility] for COPD exacerbation, intra-abdominal bleed suspected from pancreatic cyst hemorrhage. She was on heparin for chest pain and suspicious of acute ACS. She received multiple units of PRBC ( 3) and her bleeding was contained with protamine sulfate transfusion and FFP. She was discharged in stable condition. Today she is brought to the emergency room after she [facility] an [facility]. Patient stated she was sitting at the edge of the bed , probably in a position that she should not she mentioned, she slipped and felt hitting her left hip mainly. She denies hitting her head. X-ray in the emergency room show a left intratrochanteric fracture. Patient is admitted and orthopedics was consulted for possible intervention Hospital Course #. Left intertrochanteric hip fracture s/p Left hip open reduction and internal fixation with dynamic hip screw on 06/20 .acute -pain control: Percocet -DVT prophylaxis as having 325 mg by mouth daily for 6 weeks as per ortho, Lovenox avoided due to recent intraoperative bleeding. Orthopedics recommendation Weightbearing: Weightbearing as tolerated with walker DVT prophylaxis: aspirin 325 mg once a day 6 weeks Physical therapy for transfers, progressive ambulation, therapeutic exercise Wound care: Dressing change today by PA to [place] dressing. Nursing to change prn if saturated Follow-up plan: In 2 weeks at [facility] with PA for wound check and at [address] Davila with x-rays #Anemia requiring transfusion, acute -Patient had recent intra-abdominal bleeding requiring transfusion. She came with a mechanical fall. She was noted to have 2 g hemoglobin drop on 06/20. Partly dilutional given IV fluids. she also has some swelling at left hip. transfused 2 PRBCs, TXA given in OR, hemoglobin responded appropriately. Very unlikely she has rebleeding intraperitoneal. -Hb 10.6 today ( was 11.2 yesterday). no much change #. Status post mechanical fall #. chronic hypercapnic and hypoxic respiratory failure due to COPD on 3L O2 -continue Advaitr and Spiriva -She is on prednisone 20 mg by mouth daily. She states she has been on and off prednisone for COPD exacerbations. will taper prednisone to 10 mg by mouth daily for 5 days and then stop. Chronic medical problems 1. COPD 2. 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 Type II diabetes -Sliding-scale 4. GERD 5.HTN 6.Depression ,c/w zoloft Condition on discharge stable Disposition: Discharge to [facility] Exam Vital Signs (Last) Date Time Temp Pulse Resp B/P Pulse Ox O2 Delivery O2 Flow Rate FiO2 06/22/16 08:35 Supplement Oxygen 06/22/16 05:45 37.0 60 19 162/84 94 2.00 Exam Constitutional : Frail, cachectic female, very pleasant, no acute distress Head / Eyes: Atraumatic, sclerae is anicteric ENT: Mucous membranes moist, no oral thrush Neck: Supple, trachea is midline. No JVD. Chest: Normal respiratory effort, no chest wall tenderness Cardiovascular: Regular rate & rhythm, no gallop, no murmur Abdomen / GI: Soft, nontender, nondistended. Normal bowel sounds all quadrants Extremities: Left hip tenderness and swelling, cleanly dressed surgical site at left hip. Neurologic: Alert, Oriented. No sensory deficit Skin: Warm, Dry, No cyanosis, no rash, no ulcers Psychiatric: Mood/affect normal Test 06/19/16 16:51 06/21/16 05:38 06/22/16 07:36 Prothrombin Time 10.3sec (8.1-12.5) Prothromb Time International Ratio 0.96ratio Hold [place] Top Tube Received (Received) Urine Color Straw (YELLOW) Urine Appearance Clear (CLEAR,HAZY) Urine pH 5.0 (5.0-8.0) Urine Specific [place] 1.007 (1.003-1.035) Urine Protein Negativemg/dL (NEG,TRACE) Urine Glucose (UA) Negativemg/dL (NEGATIVE) Urine Ketones Negativemg/dL (NEGATIVE) Urine Occult Blood Negative (NEGATIVE) Urine Nitrite Negative (NEGATIVE) Urine Bilirubin Negative (NEGATIVE) Urine Urobilinogen Normalmg/dL (NORMAL) Urine Leukocyte Esterase Negative (NEGATIVE) Urine RBC 0-2/hpf (0-2) Urine WBC 0-5/hpf (0-5) Urine Epithelial Cells Few/hpf (NONE-MOD) Urine Crystals None seen (NONE SEEN) Urine Bacteria None/hpf (NONE-FEW) Urine Hyaline Casts None/lpf (NONE) Urine Granular Casts None seen (NONE SEEN) Urine Waxy Casts None seen (NONE SEEN) Urine Red Blood Cell Casts None seen (NONE SEEN) Urine White Blood Cell Casts None seen (NONE SEEN) Urine Mucus None seen (None Seen) Urine Trichomonas None seen (NONE SEEN) Urine Yeast None (NONE SEEN) Urinalysis Comment None Urine Culture Reflexed Not indicated White Blood Count 8.7th/mm3 (3.8-10.1) Red Blood Count 3.71mil/mm3 (3.90-5.20) Hemoglobin 10.6g/dL (12.0-15.6) Hematocrit 32.1% (35.0-46.0) Mean Corpuscular Volume 86.5fL (81-100) Mean Corpuscular Hemoglobin 28.6pg (27.0-35.0) Mean Corpuscular Hemoglobin Concent 33.0% (32.0-37.0) Red Cell Distribution Width 15.7% (12.3-15.4) Platelet Count 162bil/L (150-400) Neutrophils (%) (Auto) 69.1% (40-74) Lymphocytes (%) (Auto) 17.4% (14-46) Monocytes (%) (Auto) 9.9% (4-12) Eosinophils (%) (Auto) 1.3% (0-5) Basophils (%) (Auto) 0.2% (0-3) Sodium Level 132mEq/L (134-144) Potassium Level 3.8mEq/L (3.5-5.2) Chloride Level 95mEq/L (97-108) Carbon Dioxide Level 26mmol/L (18-29) Blood Urea Nitrogen 14mg/dL (8-27) Creatinine 0.47mg/dL (0.57-1.00) Estimat Glomerular Filtration Rate 184mL/min (>59) Glucose Level 107mg/dL (60-99) Calcium Level 8.0mg/dL (8.5-10.1) Total Bilirubin 0.3mg/dL (0.0-1.2) Aspartate Amino Transf (AST/SGOT) 20U/L (0-50) Alanine Aminotransferase (ALT/SGPT) 6U/L (0-32) Alkaline Phosphatase 60U/L (25-165) Total Protein 5.2g/dL (6.4-8.4) Albumin 2.5g/dL (3.4-5.0) Discharge Medications Discharge Medications ([Aspirin-Expunged Drug, Do Not Renew!]) 325 MG TABLET 325 MG PO DAILY Prescribed by: HALIMA RENE MD Albuterol HFA (Proair HFA) 8.5 Gm Hfa.aer.ad 2 PUFFS INHALATION Q4H (Reported) Albuterol Neb Soln (Albuterol Neb Soln) 0.63 Mg/3 Ml Vial.neb 0.63 MG INHALATION QID (Reported) Beclomethasone Dipropionate (Qvar) 8.7 Gm Aer.w.adap 1 PUFF INHALATION BID ( Reported) Calcium Carbonate (Tums) 500 Mg Tab.chew 500 MG PO DAILYWD (Reported) Diltiazem (Diltiazem) 30 Mg Tablet 30 MG PO TID (Reported) Docusate Sodium (Colace) 100 Mg Capsule 100 MG PO DAILY (Reported) Ergocalciferol (Vitamin D2) (Vitamin D2) 2,000 Unit Tablet 2,000 UNIT PO DAILY ( Reported) Ferrous Sulfate (Iron) 325 Mg Capsule.er 325 MG PO DAILY (Reported) Fexofenadine (Fexofenadine) 180 Mg Tablet 180 MG PO DAILY (Reported) DAILY NEEDED FOR ALLERGIES Fluticasone Propionate (Fluticasone Propionate) 50 Mcg/Actuation [place].susp 1 SPRAY NASAL DAILY (Reported) Metformin (Metformin) 500 Mg Tablet 500 MG PO DAILY (Reported) Multivitamin (Once Daily) 1 Each Tablet 1 EACH PO DAILY (Reported) Prednisone (PredniSONE) 20 Mg Tablet 10 MG PO DAILY Prescribed by: HALIMA RENE MD Propranolol HCl (Propranolol HCl) 80 Mg Tablet 80 MG PO BID (Reported) Ranitidine (Ranitidine) 150 Mg Capsule 150 MG PO BID (Reported) Sertraline HCl (Sertraline) 25 Mg Tablet 25 MG PO DAILY (Reported) Tiotropium [place] (Spiriva) 18 Mcg Cap.w.dev 18 MCG IH DAILY (Reported) As needed Acetaminophen (Acetaminophen) 325 Mg Tablet 650 MG PO Q4H PRN PRN For Pain ( Reported) Albuterol Neb Soln (Albuterol Neb Soln) 0.63 Mg/3 Ml Vial.neb 0.63 MG INHALATION Q4H PRN PRN For Shortness of Breath (Reported) Hydrocodone-Acetaminophen 5-325 mg (Hydrocodone-Acetaminophen 5-325 mg) 1 Each Tablet 1-2 TABLET PO Q4H PRN PRN For Moderate Pain Prescribed by: HALIMA RENE MD Zolpidem (Ambien) 5 Mg Tablet 5 MG PO HS PRN PRN For Insomnia (Reported) Followup Plan Disposition: [facility] Follow-up plan Follow-up with PCP 1 week after discharge from senior living facility. Please follow-up with orthopedics as instructed above. Discharge Diet: Low fat, Low Sodium, Heart Healthy Discharge Activity: Other (continue physical therapy at senior living facility.) Patient Instructions You were hospitalized due to left hip fracture and underwent successful left hip open reduction and internal fixation. You also had anemia requiring transfusion and transfuse 2 units of blood. Hemoglobin responded appropriately. Unlikely you have bleeding into your abdomen again. Anemia likely due to fracture. Orthopedics recommendations Weightbearing: Weightbearing as tolerated with walker DVT prophylaxis: aspirin 325 mg once a day 6 weeks Physical therapy for transfers, progressive ambulation, therapeutic exercise Wound care: Dressing change today by PA to [place] dressing. Nursing to change prn if saturated Follow-up plan: In 2 weeks at [facility] with PA for wound check and at [address] Davila with x-rays Follow-up Provider: Todd Gacria DO Follow-up with PCP in: 1 week Provider: Ephraim Davila DO Follow-up in: 6 weeks Follow-up with Mid-level in: 2 weeks ([facility] ) Time spent 40 minutes coordinating discharge copies to: Todd Garcia Melaku MD Jun 22, 2016 13:44
--- NOTE | 2016-06-22 15:29 | NUR ---
Discharge Pt discharged back to [facility] s/p ORIF of LEFT HIP - POD#2; left via w/c by transport service at 1437. A&Ox3 - answering appropriately, MATTHEW - limited to LLE d/t fx, VSS - left with 2.5L NC O2 (per pt, on home O2), Pain present but tolerable, IV dc'd intact by digital librarian JOAQUIM Marie, Dressing to hip CDI, All personal belongings in hand at dc. Scripts in pt packet put together by CM. No questions/concerns unanswered at time of dc. Attempted to call [facility] to give report after pt left - at 1528, called, no answer, voicemail left. Will call back. Addendum: 06/22/16 at 1633 by DEIDRA PATRICK RN Report called to [facility] at 1630. She was also made aware that pt kaur dc'd at 1200 and to watch for urine retention.
== END 2016-06-22 14:38 | DRG 481 ==
LOC: EDBD 15:01 → SED 15:01 → OSC 17:11 → OBSVTOIN 17:11 → OSC 18:15
PROVIDERS: ADMIT Internal Medicine; ATTEND Internal Medicine
PROC: 30233N1 Transfusion of Nonautologous Red Blood Cells into Peripheral Vein, Percutaneous Approach (ICD-10-PCS; 2016-06-20)
PROC: 0QS704Z Reposition Left Upper Femur with Internal Fixation Device, Open Approach (ICD-10-PCS; principal; 2016-06-20 09:00)
DX: S72.142A Displaced intertrochanteric fracture of left femur, initial encounter for closed fracture (principal); J96.11 Chronic respiratory failure with hypoxia; J96.12 Chronic respiratory failure with hypercapnia; Z79.82 Long term (current) use of aspirin; Z79.84 Long term (current) use of oral hypoglycemic drugs; W06.XXXA Fall from bed, initial encounter; Y93.9 Activity, unspecified; Y92.122 Bedroom in nursing home as the place of occurrence of the external cause; Y99.9 Unspecified external cause status; D64.9 Anemia, unspecified; J44.9 Chronic obstructive pulmonary disease, unspecified; Z99.81 Dependence on supplemental oxygen; F32.9 Major depressive disorder, single episode, unspecified